=== PATIENT | female | born 1975 | race Caucasian/White ===

== ENCOUNTER → 2017-07-29 | Outpatient (CLI) | payer MEDICAID ==
[~2017-07-29] MED LIST: IOHEXOL 350 MG/ML 100 ML (OMNIPAQUE 350) VIAL IV ONE; NS 250 ML (IVPB) BAG IV ONE
--- NOTE | 2017-07-29 16:45 | Diagnostic Imaging Report ---
EXAM: CT IAC (ROOM SERVICE FOOD SERVER AUDIT CANAL) WO. INDICATION: MASS RT EAR, DELUSION OF PARASITOSIS. COMPARISON: None. FINDINGS: There is a soft tissue/fluid attenuating mass in the anterior wall of the right external ear canal near the tympanic membrane. This measures approximately 4 x 7 x 5 mm. There is concave osseous remodeling into the external ear canal suggesting this is originating external to the canal and/or communicating with the right temporomandibular joint. There are mild degenerative changes in both temporomandibular joints which are normally aligned. The external auditory canals are otherwise clear. The tympanic membranes appear intact. Normal morphology of the auditory ossicles bilaterally. No middle ear cavity masses or fluid. Normal morphology of the semicircular canals, vestibules, cochleas, internal auditory canals, and vestibular aqueducts. The jugular bulbs are unremarkable. Normal course of the facial nerves. The mastoids are clear. Mild mucosal thickening in the partially visualized left maxillary sinus. IMPRESSION: Indeterminate soft tissue/fluid attenuating mass in the medial anterior right external auditory canal measures up to 7 mm. Osseous remodeling along the periphery of this mass suggests that it is originating from the temporomandibular joint and may represent a synovial cyst. A dedicated MRI of the temporomandibular joints could be performed for further characterization. Dictated by: Dictated on workstation # [id number]
== END ==
LOC: RAD 07:42
PROVIDERS: ATTEND Nurse Practitioner Community Health
DX: H93.8X1 Other specified disorders of right ear (principal); F22 Delusional disorders; F41.9 Anxiety disorder, unspecified
CPT/HCPCS: 70480

== ENCOUNTER → 2018-02-13 | Outpatient (CLI) | payer SELFPAY | LOC: CARD 09:07 | PROVIDERS: ATTEND Nurse Practitioner Community Health | DX: R01.1 Cardiac murmur, unspecified (principal); R06.02 Shortness of breath; I35.1 Nonrheumatic aortic (valve) insufficiency | CPT/HCPCS: 93306 ==

== ENCOUNTER → 2018-08-08 | Outpatient (CLI) | payer MEDICAID ==
--- NOTE | 2018-08-08 17:44 | Diagnostic Imaging Report ---
INDICATION: Routine screening. COMPARISON: No prior mammograms are available for comparison. This is a baseline study. EXAMINATION: 2D and 3D bilateral screening mammography was performed with CAD. The current study was also evaluated with a Computer Aided Detection (CAD) system. FINDINGS: Both breasts are heterogeneously dense, limiting the sensitivity of mammography. No mass or malignant appearing microcalcifications are seen. Intraparenchymal lymph nodes in the upper outer aspects of both breasts are noted. Axillae are unremarkable. IMPRESSION: No mammographic features suspicious for malignancy are identified. ACR BI-RADS Category 2: Benign findings. Result letter will be mailed to the patient. Note: At least 10% of breast cancer is not imaged by mammography. Dictated by: Dictated on workstation # [id number]
== END ==
LOC: RAD 08:04
PROVIDERS: ATTEND Nurse Practitioner Primary Care
DX: Z12.31 Encounter for screening mammogram for malignant neoplasm of breast (principal)
CPT/HCPCS: 77067

== ENCOUNTER → 2019-02-04 | Outpatient (CLI) | payer MEDICAID ==
--- NOTE | 2019-02-04 15:28 | Diagnostic Imaging Report ---
PROCEDURE: US NON-OB transvaginal. TECHNIQUE: Multiple Real-time grayscale images were obtained of the pelvis in various projections endovaginally. INDICATION: Menorrhagia. FINDINGS: The uterus measures 10.8 x 5.8 x 5.2 cm. The endometrium is 5 mm in thickness. There is a posterior uterine mass measuring approximately 2.7 x 1.6 x 3.4 cm, suggestive of a fibroid. The right ovary measures 3.5 x 1.8 x 2.1 cm and the left ovary measures 3.5 x 2.9 x 2.0 cm. No adnexal mass or free fluid is seen. IMPRESSION: Probable uterine fibroid. The study is otherwise unremarkable. Dictated by: Dictated on workstation # [id number]
== END ==
LOC: RAD 10:07
PROVIDERS: ATTEND Obstetrics & Gynecology
DX: N92.0 Excessive and frequent menstruation with regular cycle (principal); N94.5 Secondary dysmenorrhea
CPT/HCPCS: 76830

== ENCOUNTER 2019-02-17 09:00 | Outpatient (CLI) | payer MEDICAID ==
[~2019-02-17] VITALS: Ht 157.5 cm; Wt 88.6 kg
[2019-02-17] MEDS ORDERED: PARO40TA3 PO (09:57)
== END 2019-02-17 10:04 ==
LOC: PREOP 09:00
PROVIDERS: ATTEND Obstetrics & Gynecology
DX: Z01.818 Encounter for other preprocedural examination (principal)

== ENCOUNTER 2019-06-02 12:51 | Outpatient (CLI) | payer MEDICAID ==
[~2019-06-02] VITALS: Ht 157 cm; Wt 85.0 kg
[~2019-06-02 12:51] MED LIST changes: +ACET-93 PO; +FERR325T18 PO; +IBUP-844 PO; -IOHEXOL 350 MG/ML 100 ML (OMNIPAQUE 350) VIAL IV ONE; -NS 250 ML (IVPB) BAG IV ONE; +OXC5T PO; +PARO40TA3 PO; +SENN-20 PO
[2019-06-02] MEDS ORDERED: VNL37.5T PO (12:57)
[2019-06-03] MEDS ORDERED: HYDR15SO6 PO (11:00)
== END 2019-06-02 13:17 | disposition home or self-care (01) ==
LOC: PREOP 12:51
PROVIDERS: ATTEND Surgery
DX: Z01.818 Encounter for other preprocedural examination (principal)

== ENCOUNTER 2019-06-16 15:25 | Observation (INO) | payer MEDICAID ==
[2019-06-16] VITALS (9 sets, daily range): BP systolic 104–157; BP diastolic 56–77
[~2019-06-16] VITALS: Ht 165.1 cm; Wt 68.9 kg
[~2019-06-16 15:25] MED LIST changes: +HYDR15SO6 PO; +VNL37.5T PO
[2019-06-16] MEDS ORDERED: NS IV 1000 ML 1,000 ML IV SCH ×2 (15:45→17:15)
[2019-06-16] MEDS ORDERED: LORazepam INJ 2 MG/ML (ATIVAN) VIAL IVP PRN (15:45)
--- NOTE | 2019-06-16 15:50 | ED Dyspnea ---
General Stated Complaint: SOA Source of Information: Patient Exam Limitations: No Limitations History of Present Illness Date Seen by Provider: Jun 16, 2019 Time Seen by Provider: 15:46 Initial Comments to ER with sudden onset shortness of breath about one hour ago. She was showering and decided to clean the shower while she was in it, she mixed pilot station away and mildew remover and inhaled the fumes and since then has been feeling as if her heart is beating fast and short of breath. She states she is not sure if she just made herself panic.she is currently undergoing chemotherapy for cervical cancer most recent dose on Saturday of last week Timing/Duration: 1 Week Severity: Moderate Associated Symptoms: Anxiety Allergies and Home Medications Allergies Coded Allergies: aspirin (Verified Allergy, Severe, VOMITTING,FEVER,SWELLING, 06/02/19) Home Medications Hydrocodone Bit/Acetaminophen 15 Ml Solution, 15 ML PO Q4H Prescribed by: PORFIRIO PEMBERTON on 06/03/19 1100 Ibuprofen 600 Mg Tablet, 600 MG PO Q6HR Prescribed by: YFN QUEZADA on 03/10/19 1324 Paroxetine HCl 40 Mg Tablet, 40 MG PO DAILY, (Reported) Venlafaxine HCl 37.5 Mg Tab, 37.5 MG PO DAILY, (Reported) Patient Home Medication List Home Medication List Reviewed: Yes Review of Systems Review of Systems Constitutional: see HPI EENTM: see HPI Respiratory: cough Cardiovascular: no symptoms reported Genitourinary: no symptoms reported Musculoskeletal: see HPI Skin: no symptoms reported Psychiatric/Neurological: See HPI, Anxiety Past [id number]-Klvryu Hx Patient Social History Type Used: Cigarettes 2nd Hand Smoke Exposure: Yes Recent Hopitalizations: No Seasonal Allergies Seasonal Allergies: Yes Past Medical History Surgeries: Yes (C/S X2) Respiratory: Yes (ONSET OF COPD) Cardiac: No Neurological: No Sexually Transmitted Disease: No HIV/AIDS: No Genitourinary: No Gastrointestinal: No Musculoskeletal: Yes Chronic Back Pain Endocrine: No HEENT: No (GLASSES/CONTACTS) Loss of Vision: Denies Hearing Impairment: Denies Cancer: Yes Cervical Did You Recieve Any Treatments: Yes What Type of Treatment Did You: Chemotherapy, Surgical Intervention Psychosocial: Yes Anxiety, Depression Integumentary: No Blood Disorders: Yes (ANEMIA) Adverse Reaction/Blood Tranf: No (HAS HAD BLOOD WITH NO REACTION) Family Medical History Cardiovascular disease 19 FATHER Diabetes mellitus 19 FATHER Hypertension 19 FATHER Myocardial infarction 19 FATHER Physical Exam Vital Signs Vital Signs - First Documented 06/16/19 15:25 Temp 36.8 Pulse 137 Resp 22 B/P (MAP) 164/86 (112) Pulse Ox 99 O2 Delivery Room Air Capillary Refill : Height, Weight, BMI Height: '" Weight: lbs. oz. kg; 34.48 BMI Method: General Appearance: WD/WN, Anxious, Obese HEENT: PERRL/EOMI, Normal ENT Inspection Respiratory: Normal Breath Sounds, No Accessory Muscle Use, No Respiratory Distress, Other (tachypneic) Cardiovascular: Tachycardia (130s) Gastrointestinal: Non Tender, Soft Extremity: Normal Capillary Refill Neurologic/Psychiatric: Alert, Oriented x3 Skin: Normal Color, Warm/Dry Progress/Results/Core Measures Results/Orders Lab Results Laboratory Tests Test 06/16/19 15:53 Range/Units White Blood Count 22.0 H 4.3-11.0 10^3/uL Red Blood Count 4.10 L 4.35-5.85 10^6/uL Hemoglobin 12.7 11.5-16.0 G/DL Hematocrit 39 35-52 % Mean Corpuscular Volume 94 80-99 FL Mean Corpuscular Hemoglobin 31 25-34 PG Mean Corpuscular Hemoglobin Concent 33 32-36 G/DL Red Cell Distribution Width 15.5 H 10.0-14.5 % Platelet Count 233 130-400 10^3/uL Mean Platelet Volume 10.6 H 7.4-10.4 FL Neutrophils (%) (Auto) 92 H 42-75 % Lymphocytes (%) (Auto) 2 L 12-44 % Monocytes (%) (Auto) 6 0-12 % Eosinophils (%) (Auto) 0 0-10 % Basophils (%) (Auto) 0 0-10 % Neutrophils # (Auto) 20.3 H 1.8-7.8 X 10^3 Lymphocytes # (Auto) 0.4 L 1.0-4.0 X 10^3 Monocytes # (Auto) 1.3 H 0.0-1.0 X 10^3 Eosinophils # (Auto) 0.0 0.0-0.3 10^3/uL Basophils # (Auto) 0.0 0.0-0.1 10^3/uL Neutrophils % (Manual) 95 % Lymphocytes % (Manual) 1 % Monocytes % (Manual) 4 % Hypochromasia MODERATE Anisocytosis SLIGHT D-Dimer < 0.27 0.00-0.49 UG/ML Sodium Level 139 135-145 MMOL/L Potassium Level 2.8 L 3.6-5.0 MMOL/L Chloride Level 109 H 98-107 MMOL/L Carbon Dioxide Level 12 L 21-32 MMOL/L Anion Gap 18 H 5-14 MMOL/L Blood Urea Nitrogen 8 7-18 MG/DL Creatinine 0.81 0.60-1.30 MG/DL Estimat Glomerular Filtration Rate > 60 BUN/Creatinine Ratio 10 Glucose Level 312 H 70-105 MG/DL Calcium Level 9.0 8.5-10.1 MG/DL Corrected Calcium 8.8 8.5-10.1 MG/DL Magnesium Level 2.0 1.6-2.4 MG/DL Total Bilirubin 0.2 0.1-1.0 MG/DL Aspartate Amino Transf (AST/SGOT) 26 5-34 U/L Alanine Aminotransferase (ALT/SGPT) 48 0-55 U/L Alkaline Phosphatase 104 40-136 U/L Troponin I < 0.028 <0.028 NG/ML C-Reactive Protein High Sensitivity 0.15 0.00-0.50 MG/DL B-Type Natriuretic Peptide 61.5 <100.0 PG/ML Total Protein 6.9 6.4-8.2 GM/DL Albumin 4.2 3.2-4.5 GM/DL Procalcitonin 0.02 <0.10 NG/ML My Orders Orders - TOM FABIAN AUTO PAINTER Cbc With Automated Diff (06/16/19 15:42) Comprehensive Metabolic Panel (06/16/19 15:42) BNP (06/16/19 15:42) Troponin I (06/16/19 15:42) Ekg Tracing (06/16/19 15:42) Fibrin Degradation Products (06/16/19 15:42) Chest 1 View, Ap/Pa Only (06/16/19 15:42) Ed Iv/Invasive Line Start (06/16/19 15:42) Lorazepam Injection (Ativan Injection) (06/16/19 15:45) Ns Iv 1000 Ml (Sodium Chloride 0.9%) (06/16/19 15:45) Manual Differential (06/16/19 15:53) Potassium Cl 10meq/50ml Ivpb (Kcl 10 Meq (06/16/19 16:45) Potassium Chloride (Tablet) (Klor Con Ta (06/16/19 16:45) Ns Iv 1000 Ml (Sodium Chloride 0.9%) (06/16/19 17:15) Hs C Reactive Protein (06/16/19 17:24) Procalcitonin (Pct) (06/16/19 17:24) Magnesium (06/16/19 17:27) Medications Given in ED Current Medications Medications Dose Ordered Sig/Dunia Route Start Time Stop Time Status Last Admin Dose Admin Lorazepam 0.5 mg ONCE PRN IVP 06/16/19 15:45 06/16/19 16:00 0.5 MG Potassium Chloride 50 meq ONCE ONCE PO 06/16/19 16:45 06/16/19 16:46 DC 06/16/19 16:42 50 MEQ Potassium Chloride 50 ml @ 50 mls/hr ONCE ONCE IV 06/16/19 16:45 06/16/19 17:44 DC 06/16/19 16:42 50 MLS/HR Vital Signs/I&O 06/16/19 15:25 Temp 36.8 Pulse 137 Resp 22 B/P (MAP) 164/86 (112) Pulse Ox 99 O2 Delivery Room Air Diagnostic Imaging Diagonstic Imaging: Xray Comments NAME: RAMIREZ CROWTIM Beckham [facility] REC#: [id number] PT STATUS: REG ER : 1975 PHYSICIAN: TOM FABIAN AUTO PAINTER ADMIT DATE: 06/16/19/ER Signed Date of Exam:06/16/19 CHEST 1 VIEW, AP/PA ONLY EXAMINATION: Chest radiograph, portable AP view. DATE: 06/16/2019 4:39 PM hours. INDICATION: 43-year-old female, chest pain. Shortness of breath. COMPARISON: June 03, 2019. FINDINGS: There is a left-sided port catheter with tip overlying the upper SVC. Stable overall appearance of the cardiomediastinal silhouette. There is no identified pneumothorax. There is no large pleural effusion. There is no identified focal airspace consolidation. IMPRESSION: 1. No identified acute cardiopulmonary abnormality. Dictated by: Dictated on workstation # [id number] Dict: 06/16/19 1640 Trans: 06/16/19 1646 [facility] [id number] Interpreted by: KENDELL NESS MD Electronically signed by: KENDELL NESS MD 06/16/196 Departure Communication (Admissions) Time/Spoke to Admitting Phy: 17:[address] Hanson, we will go ahead and admit, observation status replace electrolytes 1651-discussed with Dr. Rowell, the leukocytosis/demargination is likely secondary to whatever she was exposed to. She did receive chemotherapy yesterday but did not receive any Neupogen. She has no fevers. After the 0.5 mg of lorazepam she is feeling better. I'll replace the potassium both orally and with IV. If she is otherwise medically stable he advised that she can go home. her heart rate is reduced but still tachycardic at about 130 sinus and her oxygen saturation remains greater than 98% on room air.chest x-ray is clear.I will go ahead and test her for COVID-19 given that she is a cancer patient with shortness of breath(though she states the shortness of breath is chronic).given the new tachycardia leukocytosis and hypokalemia I will admit observation status. COVID-19 swabs have been done. Impression Primary Impression: Dyspnea Additional Impressions: Hypokalemia Leukocytosis Disposition: ADMITTED INPATIENT Condition: Stable Admissions Decision to Admit Reason: Admit from ER (General) Decision to Admit/Date: Jun 16, 2019 Time/Decision to Admit Time: 17:20 Departure-Patient Inst. Referrals: [facility] [place]) Primary Care Physician OLIVIA JOYCE (Family) Primary Care Physician TOM FABIAN APRN Jun 16, 2019 15:50
[2019-06-16 15:59] LABS: BASOPHILS % (AUTO) 0 % (0-10); EOSINOPHILS % (AUTO) 0 % (0-10); HEMATOCRIT 39 % (35-52); HEMOGLOBIN 12.7 G/DL (11.5-16.0); LYMPHOCYTES # (AUTO) 0.4 X 10^3 (1.0-4.0); LYMPHOCYTES % (AUTO) 2 % (12-44); MEAN CORPUSCULAR HEMOGLOBIN 31 PG (25-34); MEAN CORPUSCULAR HGB CONC 33 G/DL (32-36); MEAN CORPUSCULAR VOLUME 94 FL (80-99); MEAN PLATELET VOLUME 10.6 FL (7.4-10.4); MONOCYTES # (AUTO) 1.3 X 10^3 (0.0-1.0); MONOCYTES % (AUTO) 6 % (0-12); NEUTROPHILS # (AUTO) 20.3 X 10^3 (1.8-7.8); NEUTROPHILS % (AUTO) 92 % (42-75); PLATELET COUNT 233 10^3/uL (130-400); RED CELL DISTRIBUTION WIDTH 15.5 % (10.0-14.5)
[2019-06-16 16:26] LABS: ALANINE AMINOTRANSFERASE 48 U/L (0-55); ALBUMIN 4.2 GM/DL (3.2-4.5); ALKALINE PHOSPHATASE 104 U/L (40-136); BILIRUBIN,TOTAL 0.2 MG/DL (0.1-1.0); BUN/CREATININE RATIO 10; CARBON DIOXIDE 12 MMOL/L (21-32); CHLORIDE 109 MMOL/L (98-107); CREATININE SERUM 0.81 MG/DL (0.60-1.30); GFR ESTIMATED > 60; GLUCOSE 312 MG/DL (70-105); POTASSIUM 2.8 MMOL/L (3.6-5.0); SODIUM 139 MMOL/L (135-145); TOTAL PROTEIN 6.9 GM/DL (6.4-8.2)
[2019-06-16 16:40] LABS: ANISOCYTOSIS SLIGHT; HYPOCHROMASIA MODERATE; LYMPHOCYTES % (MANUAL) 1 %; MONOCYTES % (MANUAL) 4 %; NEUTROPHILS % (MANUAL) 95 %
--- NOTE | 2019-06-16 16:43 | Diagnostic Imaging Report ---
EXAMINATION: Chest radiograph, portable AP view. DATE: 06/16/2019 4:39 PM hours. INDICATION: 43-year-old female, chest pain. Shortness of breath. COMPARISON: June 03, 2019. FINDINGS: There is a left-sided port catheter with tip overlying the upper SVC. Stable overall appearance of the cardiomediastinal silhouette. There is no identified pneumothorax. There is no large pleural effusion. There is no identified focal airspace consolidation. IMPRESSION: 1. No identified acute cardiopulmonary abnormality. Dictated by: Dictated on workstation # [id number]
[2019-06-16] MEDS ORDERED: POTASSIUM CL 10MEQ/50ML IVPB 50 ML IV ONE (16:45)
[2019-06-16] MEDS ORDERED: KCL 10 MEQ TAB (MICRO K) PO ONE (16:45)
--- NOTE | 2019-06-16 17:35 | NUR ---
NOTED PT HAVING DRY COUGH
--- OUTSIDE RECORDS SUMMARY | 2019-06-16 18:12 | XMS REPORT | Continuity of Care Document ---
Author Organization Unknown Address Unknown Phone Unavailable Allergies Active Description Code Type Severity Reaction Onset Reported/Identified Relationship to Patient Clinical Status Yes No Allergy Information Available [id number] Drug Allergy Unknown N/A 018 Yes aspirin [id number] Drug Allergy Unknown N/A 02/17/2019 Yes aspirin [id number] Drug Allergy Severe VOMITTING,FEVER 06/02/2019 Medications There is no data. 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 DELUSIONAL DISORDERS 07/30/2017 OLIVIA JOYCE Ot F41.9 ANXIETY DISORDER, UNSPECIFIED 07/30/2017 OLIVIA JOYCE Ot H93.8X1 OTHER SPECIFIED DISORDERS OF RIGHT EAR 08/15/2017 OLIVIA JOYCE Ot F2 2 DELUSIONAL DISORDERS 08/15/2017 OLIVIA JOYCE Ot F41.9 ANXIETY DISORDER, UNSPECIFIED 08/15/2017 OLIVIA JOYCE Ot H93.8X1 OTHER SPECIFIED DISORDERS OF RIGHT EAR 01/07/2018 OLIVIA JOYCE Ot F2 2 DELUSIONAL DISORDERS 01/07/2018 OLIVIA JOYCE Ot F41.9 ANXIETY DISORDER, UNSPECIFIED 01/07/2018 OLIVIA JOYCE Ot H93.8X1 OTHER SPECIFIED DISORDERS OF RIGHT EAR 01/07/2018 OLIVIA JOYCE Ot F2 2 DELUSIONAL DISORDERS 01/07/2018 OLIVIA JOYCE Ot F41.9 ANXIETY DISORDER, UNSPECIFIED 01/07/2018 OLIVIA JOYCE RU[employer] SOFTWARE DEVELOPER Ot H93.8X1 OTHER SPECIFIED DISORDERS OF RIGHT EAR 01/07/2018 ISIAH OLIVIA Keegan [employer] SOFTWARE DEVELOPER Ot F2 2 DELUSIONAL DISORDERS 01/07/2018 ISIAH OLIVIA Keegan [employer] SOFTWARE DEVELOPER Ot F41.9 ANXIETY DISORDER, UNSPECIFIED 01/07/2018 ISIAHOLIVIA RUBY ON [employer] SOFTWARE DEVELOPER Ot H93.8X1 OTHER SPECIFIED DISORDERS OF RIGHT EAR 02/12/2018 OLIVIA JOYCEP Ot F2 2 DELUSIONAL DISORDERS 02/12/2018 ISIAH OLIVIA Keegan [employer] SOFTWARE DEVELOPER Ot F41.9 ANXIETY DISORDER, UNSPECIFIED 02/12/2018 ISIAH OLIVIA Keegan [employer] SOFTWARE DEVELOPER Ot H93.8X1 OTHER SPECIFIED DISORDERS OF RIGHT EAR 02/12/2018 ISIAH OLIVIA Keegan MAINP Ot F2 2 DELUSIONAL DISORDERS 02/12/2018 ISIAH OLIVIA Keegan [employer] SOFTWARE DEVELOPER Ot F41.9 ANXIETY DISORDER, UNSPECIFIED 02/12/2018 ISIAH OLIVIA Keegan MAINP Ot H93.8X1 OTHER SPECIFIED DISORDERS OF RIGHT EAR 02/17/2018 ISIAH OLIVIA Keegan [employer] SOFTWARE DEVELOPER Ot I35.1 NONRHEUMATIC AORTIC (VALVE) INSUFFICIENC 02/17/2018 ISIAH OLIVIA Keegan [employer] SOFTWARE DEVELOPER Ot R01.1 CARDIAC MURMUR, UNSPECIFIED 02/17/2018 ISIAH OLIVIA Keegan [employer] SOFTWARE DEVELOPER Ot R06.02 SHORTNESS OF BREATH 03/07/2018 ISIAH OLIVIA Keegan [employer] SOFTWARE DEVELOPER Ot I35.1 NONRHEUMATIC AORTIC (VALVE) INSUFFICIENC 03/07/2018 ISIAH OLIVIA Keegan [employer] SOFTWARE DEVELOPER Ot R01.1 CARDIAC MURMUR, UNSPECIFIED 03/07/2018 ISIAH OLIVIA Keegan [employer] SOFTWARE DEVELOPER Ot R06.02 SHORTNESS OF BREATH 03/24/2018 ISIAH OLIVIA Keegan [employer] SOFTWARE DEVELOPER Ot I35.1 NONRHEUMATIC AORTIC (VALVE) INSUFFICIENC 03/24/2018 ISIAH OLIVIA Keegan [employer] SOFTWARE DEVELOPER Ot R01.1 CARDIAC MURMUR, UNSPECIFIED 03/24/2018 ISIAH OLIVIA Keegan [employer] SOFTWARE DEVELOPER Ot R06.02 SHORTNESS OF BREATH 07/28/2018 OLIVIA JOYCE [employer] SOFTWARE DEVELOPER Ot 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 DELUSIONAL DISORDERS 07/28/2018 ISIAH OLIVIA Keegan [employer] SOFTWARE DEVELOPER Ot F41.9 ANXIETY DISORDER, UNSPECIFIED 07/28/2018 ISIAH OLIVIA Keegan [employer] SOFTWARE DEVELOPER Ot H93.8X1 OTHER SPECIFIED DISORDERS OF RIGHT EAR 07/28/2018 ISIAH OLIVIA Keegan [employer] SOFTWARE DEVELOPER Ot I35.1 NONRHEUMATIC AORTIC (VALVE) INSUFFICIENC 07/28/2018 ISIAH OLIVIA Keegan MAINP Ot R01.1 CARDIAC MURMUR, UNSPECIFIED 07/28/2018 ISIAH OLIVIA Keegan WALKER Ot R06.02 SHORTNESS OF BREATH 07/29/2018 OLIVIA JOYCEP Ot F2 2 DELUSIONAL DISORDERS 07/29/2018 OLIVIA JOYCEP Ot F41.9 ANXIETY DISORDER, UNSPECIFIED 07/29/2018 OLIVIA JOYCEP Ot H93.8X1 OTHER SPECIFIED DISORDERS OF RIGHT EAR 07/29/2018 OLIVIA JOYCEP Ot I35.1 NONRHEUMATIC AORTIC (VALVE) INSUFFICIENC 07/29/2018 ISIAH OLIVIA Keegan MAINP Ot R01.1 CARDIAC MURMUR, UNSPECIFIED 07/29/2018 OLIVIA JOYCEP Ot R06.02 SHORTNESS OF BREATH 08/12/2018 POP MCHUGH APRN Ot Z12.31 ENCNTR SCREEN MAMMOGRAM FOR MALIGNANT NE 08/25/2018 OPP MCHUGH APRN Ot Z12.31 ENCNTR SCREEN MAMMOGRAM FOR MALIGNANT NE 02/06/2019 DAMIEN SHOEMAKER YFN C Ot N92.0 EXCESSIVE AND FREQUENT MENSTRUATION WITH 02/06/2019 DAMIEN SHOEMAKER YFN C Ot N94.5 SECONDARY DYSMENORRHEA 02/17/2019 ANTHONY QUEZADA DOA C Ot Z01.8 18 ENCOUNTER FOR OTHER PREPROCEDURAL EXAMIN 03/10/2019 ANTHONY QUEZADA DOA C Ot 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5 SECONDARY DYSMENORRHEA 03/10/2019 QUEZADA DO, YFN C Ot Z79.8 99 OTHER SHELL ASSEMBLER (CURRENT) DRUG THERAPY 03/10/2019 QUEZADA DO, YFN C Ot Z82.3 FAMILY HISTORY OF STROKE 03/10/2019 QUEZADA DO, YFN C Ot Z82.4 9 FAMILY HX OF ISCHEM HEART DIS AND OTH DI 03/10/2019 QUEZADA DO, YFN C Ot Z83.3 FAMILY HISTORY OF DIABETES MELLITUS 03/10/2019 QUEZADA DO, YFN C Ot Z88.6 ALLERGY STATUS TO ANALGESIC AGENT STATUS 03/16/2019 QUEZADA DO, YFN C Ot 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, UNSPECIFIED 03/16/2019 QUEZADA DO, YFN C Ot D25.9 LEIOMYOMA OF UTERUS, UNSPECIFIED 03/16/2019 QUEZADA DO, YFN C Ot D64.9 ANEMIA, UNSPECIFIED 03/16/2019 QUEZADA DO, YFN C Ot F17.2 10 NICOTINE DEPENDENCE, CIGARETTES, UNCOMPL 03/16/2019 QUEZADA DO, YFN C Ot F41.9 ANXIETY DISORDER, UNSPECIFIED 03/16/2019 QUEZADA DO, YFN C Ot J44.9 CHRONIC OBSTRUCTIVE PULMONARY DISEASE, U 03/16/2019 QUEZADA DO, YFN C Ot K21.9 GASTRO-ESOPHAGEAL REFLUX DISEASE WITHOUT 03/16/2019 QUEZADA DO, YFN C Ot N92.0 EXCESSIVE AND FREQUENT MENSTRUATION WITH 03/16/2019 QUEZADA DO, YFN C Ot N94.5 SECONDARY DYSMENORRHEA 03/16/2019 QUEZADA DO, YFN C Ot Z79.8 99 OTHER MCC (CURRENT) DRUG THERAPY 03/16/2019 QUEZADA DO, YFN C Ot Z82.3 FAMILY HISTORY OF STROKE 03/16/2019 QUEZADA DO, YFN C Ot Z82.4 9 FAMILY HX OF ISCHEM HEART DIS AND OTH DI 03/16/2019 QUEZADA DO, YFN C Ot Z83.3 FAMILY HISTORY OF DIABETES MELLITUS 03/16/2019 QUEZADA DO, YFN C Ot Z88.6 ALLERGY STATUS TO ANALGESIC AGENT STATUS 03/18/2019 QUEZADA DO, YFN C Ot 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, UNSPECIFIED 03/18/2019 QUEZADA DO, YFN C Ot D25.9 LEIOMYOMA OF UTERUS, UNSPECIFIED 03/18/2019 QUEZADA DO YFN C Ot D64.9 ANEMIA, UNSPECIFIED 03/18/2019 QUEZADA DOANTHONYA C Ot F17.2 10 NICOTINE DEPENDENCE, CIGARETTES, UNCOMPL 03/18/2019 QUEZADA DO YFN C Ot F41.9 ANXIETY DISORDER, UNSPECIFIED 03/18/2019 QUEZADA DO YFN C Ot J44.9 CHRONIC OBSTRUCTIVE PULMONARY DISEASE, U 03/18/2019 QUEZADA DOANTHONYA C Ot K21.9 GASTRO-ESOPHAGEAL REFLUX DISEASE WITHOUT 03/18/2019 QUEZADA DO YFN C Ot N92.0 EXCESSIVE AND FREQUENT MENSTRUATION WITH 03/18/2019 QUEZADA DOANTHONYA C Ot N94.5 SECONDARY DYSMENORRHEA 03/18/2019 QUEZADA DO YFN C Ot Z79.8 99 OTHER SHELL ASSEMBLER (CURRENT) DRUG THERAPY 03/18/2019 QUEZADA DO YFN C Ot Z82.3 FAMILY HISTORY OF STROKE 03/18/2019 QUZEADA DOANTHONYA C Ot Z82.4 9 FAMILY HX OF ISCHEM HEART DIS AND OTH DI 03/18/2019 QUEZADA DOANTHONYA C Ot Z83.3 FAMILY HISTORY OF DIABETES MELLITUS 03/18/2019 QUEZADA DOANTHONYA C Ot Z88.6 ALLERGY STATUS TO ANALGESIC AGENT STATUS 05/11/2019 QUEZADA DO YFN C Ot N92.0 EXCESSIVE AND FREQUENT MENSTRUATION WITH 05/11/2019 QUEZADA DO YFN C Ot N94.5 SECONDARY DYSMENORRHEA 05/12/2019 QUEZADA DO YFN C Ot N92.0 EXCESSIVE AND FREQUENT MENSTRUATION WITH 05/12/2019 QUEZADA DO YFN C Ot N94.5 SECONDARY DYSMENORRHEA 05/12/2019 QUEZADA DO, YFN C Ot N92.0 EXCESSIVE AND FREQUENT MENSTRUATION WITH 05/12/2019 QUEZADA DO YFN C Ot N94.5 SECONDARY DYSMENORRHEA 05/27/2019 SANJAY MERCEDES Ot 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, UNSP 05/27/2019 SANJAY MERCEDES Ot D50.0 IRON DEFICIENCY ANEMIA SECONDARY TO BLOO 05/27/2019 SANJAY MERCEDES Ot J44.9 CHRONIC OBSTRUCTIVE PULMONARY DISEASE, U 05/27/2019 DAREN, SANJAY Mares Ot L65.9 NONSCARRING HAIR LOSS, UNSPECIFIED 05/27/2019 DARENSANJAY Ot 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, UNSP 05/27/2019 DAREN, SANJAY Mares Ot D50.0 IRON DEFICIENCY ANEMIA SECONDARY TO BLOO 05/27/2019 DAREN, SANJAY Mares Ot J44.9 CHRONIC OBSTRUCTIVE PULMONARY DISEASE, U 05/27/2019 DARENSANJAY Ot L65.9 NONSCARRING HAIR LOSS, UNSPECIFIED 05/28/2019 DARENSANJAY Ot 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, UNSP 05/28/2019 DARENSANJAY LAU Ot D50.0 IRON DEFICIENCY ANEMIA SECONDARY TO BLOO 05/28/2019 DAREN, SANJAY Marse Ot J44.9 CHRONIC OBSTRUCTIVE PULMONARY DISEASE, U 05/28/2019 SANJAY MERCEDES Ot L65.9 NONSCARRING HAIR LOSS, UNSPECIFIED 06/02/2019 SANJAY MERCEDES Ot 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, UNSP 06/02/2019 DARENSANJAY LAU Ot D50.0 IRON DEFICIENCY ANEMIA SECONDARY TO BLOO 06/02/2019 DAREN, SANJAY Mares Ot J44.9 CHRONIC OBSTRUCTIVE PULMONARY DISEASE, U 06/02/2019 SANJAY MERCEDES Ot L65.9 NONSCARRING HAIR LOSS, UNSPECIFIED 06/02/2019 PORFIRIO PEMBERTON MD, Ot Z01.81 8 ENCOUNTER FOR OTHER PREPROCEDURAL EXAMIN 06/04/2019 SANJAY MERCEDES Ot 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, UNSP 06/04/2019 SANJAY MERCEDES Ot D50.0 IRON DEFICIENCY ANEMIA SECONDARY TO BLOO 06/04/2019 SANJAY MERCEDES Ot J44.9 CHRONIC OBSTRUCTIVE PULMONARY DISEASE, U 06/04/2019 SANJAY MERCEDES Ot L65.9 NONSCARRING HAIR LOSS, UNSPECIFIED 06/08/2019 PORFIRIO PEMBERTON MD, Ot 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, UNSP 06/08/2019 PORFIRIO PEMBERTON MD, Ot E66.9 OBESITY, UNSPECIFIED 06/08/2019 PORFIRIO PEMBERTON MD, Ot F17.21 0 NICOTINE DEPENDENCE, CIGARETTES, UNCOMPL 06/08/2019 PORFIRIO PEMBERTON MD, Ot F32.9 MAJOR DEPRESSIVE DISORDER, SINGLE EPISOD 06/08/2019 PORFIRIO PEMBERTON MD, Ot F41.9 ANXIETY DISORDER, UNSPECIFIED 06/08/2019 PORFIRIO PEMBERTON MD, Ot J44.9 CHRONIC OBSTRUCTIVE PULMONARY DISEASE, U 06/08/2019 PORFIRIO PEMBERTON MD, Ot Z11.2 ENCOUNTER FOR SCREENING FOR OTHER BACTER 06/08/2019 PORFIRIO PEMBERTON MD, Ot Z68.35 BODY MASS INDEX (BMI) 35.0-35.9, ADULT 06/08/2019 PORFIRIO PEMBERTON MD, Ot Z79.89 9 OTHER MCC (CURRENT) DRUG THERAPY 06/08/2019 PORFIRIO PEMBERTON MD, Ot Z80.41 FAMILY HISTORY OF MALIGNANT NEOPLASM OF 06/08/2019 PORFIRIO PEMBERTON MD, Ot Z80.49 FAMILY HISTORY OF MALIGNANT NEOPLASM OF Procedures There is no data. Results Test Result Range CMP - 10/21/17 08:40 GLUCOSE 80 mg/dL 65-99 UREA NITROGEN (BUN) 9 mg/dL 7-25 CREATININE 0.49 mg/dL 0.50-1.10 eGFR NON-AFR. ANGUILLAN 118 mL/min/1.73m2 > OR = 60 eGFR 137 mL/min/1.73m2 > OR = 60 BUN/CREATININE RATIO 18 (calc) 6-22 SODIUM 136 mmol/L 135-146 POTASSIUM 4.6 mmol/L 3.5-5.3 CHLORIDE 106 mmol/L 98-110 CARBON DIOXIDE 24 mmol/L 20-32 CALCIUM 9.7 mg/dL 8.6-10.2 PROTEIN, TOTAL 7.3 g/dL 6.1-8.1 ALBUMIN 4.1 g/dL 3.6-5.1 GLOBULIN 3.2 g/dL (calc) 1.9-3.7 ALBUMIN/GLOBULIN RATIO 1.3 (calc) 1.0-2. 5 BILIRUBIN, TOTAL 0.4 mg/dL 0.2-1.2 ALKALINE PHOSPHATASE 105 U/L 33-115 AST 30 U/L 10-30 ALT 31 U/L 6-29 VITAMIN D, 25-H - 01/02/18 11:34 VITAMIN D,25-OH,TOTAL,IA 13 ng/mL 30-10 0 CBC - 04/14/18 18:02 WHITE BLOOD CELL COUNT 10.0 Thousand/uL 3.8-10.8 RED BLOOD CELL COUNT 4.83 Million/uL 3.8 0-5.10 HEMOGLOBIN 9.4 g/dL 11.7-15.5 HEMATOCRIT 32.8 % 35.0-45.0 MCV 67.9 fL 80.0-100.0 MCH 19.5 pg 27.0-33.0 MCHC 28.7 g/dL 32.0-36.0 RDW 18.3 % 11.0-15.0 PLATELET COUNT 311 Thousand/uL 140-400 MPV 11.0 fL 7.5-12.5 ABSOLUTE NEUTROPHILS 6270 cells/uL 1500- 7800 ABSOLUTE LYMPHOCYTES 2490 cells/uL 850-3 900 ABSOLUTE MONOCYTES 1000 cells/uL 200-950 ABSOLUTE EOSINOPHILS 140 cells/uL 15-500 ABSOLUTE BASOPHILS 100 cells/uL 0-200 NEUTROPHILS 62.7 % NRG LYMPHOCYTES 24.9 % NRG MONOCYTES 10.0 % NRG EOSINOPHILS 1.4 % NRG BASOPHILS 1.0 % NRG SYPHILIS (RPR W/ REFLEX CONFIRMATION) - 07/25/18 09:50 RPR (DX) W/REFL TITER AND CONFIRMATORY TESTING NON-REACTIVE NON-REACTIVE GC/CHLAMYDIA (SWAB OR URINE)-RAPID - 01/03 09:50 CHLAMYDIA TRACHOMATIS RNA, TMA NOT DETECTED NOT DETECTED NEISSERIA GONORRHOEAE RNA, TMA NOT DETECTED NOT DETECTED COMMENT NRG SUREPATH PAP AND HPV mRNA E6/E7 - 09:50 CLINICAL INFORMATION: NRG LMP: 07/11/18 NRG PREV. PAP: UNKNOWN NRG PREV. BX: NRG SOURCE: Cervix NRG STATEMENT OF ADEQUACY: NRG INTERPRETATION/RESULT: NRG SANITATION ASSOCIATE: NRG HPV mRNA E6/E7, SUREPATH VIAL Detected NOT DETECTED GENERAL CATEGORIZATION: NRG COMMENT: NRG PATHOLOGIST: NRG COMMENT NRG TISSUE, 2 SPECIMENS - 10/13/18 15:36 A SOURCE NRG A GROSS DESCRIPTION NRG A DIAGNOSIS NRG A COMMENT NRG Methicillin resistant Staphylococcus aur eus (MRSA) screening culture - 03/10/19 08:12 Methicillin resistant Staphylococcus aureus (MRSA) scr eening culture NEG NRG Complete blood count (CBC) with automate d white blood cell (WBC) differential - 03/10/19 09:05 Blood leukocytes automated count (number/volume) 7.2 10*3/uL 4.3-11.0 Blood erythrocytes automated count (number/volume) 4.19 10*6/uL 4.35-5.85 Venous blood hemoglobin measurement (mass/volume) 7.7 g/dL 11.5-16.0 Blood hematocrit (volume fraction) 27 % 35-52 Automated erythrocyte mean corpuscular volume 64 [ foz_us] 80-99 Automated erythrocyte mean corpuscular h emoglobin (mass per erythrocyte) 18 pg 25-34 Automated erythrocyte mean corpuscular h emoglobin concentration measurement (mass/volume) 29 g/dL 32-36 Automated erythrocyte distribution width ratio 19. 3 % 10.0- 14.5 Automated blood platelet count (count/volume) 104 10*3/uL 130-400 Automated blood platelet mean volume measurement T HAND BLOCKER 7.4- 10.4 Automated blood neutrophils/100 leukocytes 60 % 42-75 Automated blood lymphocytes/100 leukocytes 29 % 12-44 Blood monocytes/100 leukocytes 8 % 0-12 Automated blood eosinophils/100 leukocytes 2 % 0-10 Automated blood basophils/100 leukocytes 1 % 0-10 Blood neutrophils automated count (number/volume) 4.3 10*3 1.8-7.8 Blood lymphocytes automated count (number/volume) 2.1 10*3 1.0-4.0 Blood monocytes automated count (number/volume) 0. 6 10*3 0.0-1.0 Automated eosinophil count 0.2 10*3/uL 0 .0-0.3 Automated blood basophil count (count/volume) 0.1 10*3/uL 0.0-0.1 RED CELLS LEUKO REDUCED AS1 - 03/10/19 0 9:05 RED CELLS LEUKO REDUCED AS1 T RANSFUSED 03/10/19 1326 NR Blood type T Indirect antibody screen pa alem - 03/10/19 09:05 WRISTBAND NUMBER [id number] NRG ABO+Rh group AP NRG Blood group antibody screen NEGATIVE NR G Complete urinalysis with reflex to cultu re - 03/10/19 09:25 Urine color determination YELLOW NRG Urine clarity determination CLEAR NR G Urine pH measurement by test strip 6.0 5-9 Specific gravity of urine by test strip 1.015 1.016-1.022 Urine protein assay by test strip, semi-quantitative NEGATIVE NEGATIVE Urine glucose detection by automated test strip NE GATIVE NEGATIVE Erythrocytes detection in urine sediment by light micr oscopy NEGATIVE NEGATIVE Urine ketones detection by automated test strip NE GATIVE NEGATIVE Urine nitrite detection by test strip NEGATIVE NEGATIVE Urine total bilirubin detection by test strip NEGA TIVE NEGATIVE Urine urobilinogen measurement by automated test strip (mass/volume) 0.2 mg/dL < = 1.0 Urine leukocyte esterase detection by dipstick NEG ATIVE NEGATIVE Automated urine sediment erythrocyte cou nt by microscopy (number/high power field) NONE NRG Automated urine sediment leukocyte count by microscopy (number/high power field) NONE NRG Bacteria detection in urine sediment by light microsco py NEGATIVE NRG Squamous epithelial cells detection in u rine sediment by light microscopy 2-5 NRG Crystals detection in urine sediment by light microsco py NONE NRG Casts detection in urine sediment by light microscopy NONE NRG Mucus detection in urine sediment by light microscopy SMALL NRG Complete urinalysis with reflex to culture NO NRG Complete blood count (CBC) with automate d white blood cell (WBC) differential - 03/10/19 10:10 Blood leukocytes automated count (number/volume) 7.6 10*3/uL 4.3-11.0 Blood erythrocytes automated count (number/volume) 4.31 10*6/uL 4.35-5.85 Venous blood hemoglobin measurement (mass/volume) 7.8 g/dL 11.5-16.0 Blood hematocrit (volume fraction) 28 % 35-52 Automated erythrocyte mean corpuscular volume 65 [ foz_us] 80-99 Automated erythrocyte mean corpuscular h emoglobin (mass per erythrocyte) 18 pg 25-34 Automated erythrocyte mean corpuscular h emoglobin concentration measurement (mass/volume) 28 g/dL 32-36 Automated erythrocyte distribution width ratio 19. 7 % 10.0- 14.5 Automated blood platelet count (count/volume) 365 10*3/uL 130-400 Automated blood platelet mean volume measurement 9.7 [foz_us] 7.4-10.4 Automated blood neutrophils/100 leukocytes 57 % 42-75 Automated blood lymphocytes/100 leukocytes 32 % 12-44 Blood monocytes/100 leukocytes 9 % 0-12 Automated blood eosinophils/100 leukocytes 1 % 0-10 Automated blood basophils/100 leukocytes 1 % 0-10 Blood neutrophils automated count (number/volume) 4.3 10*3 1.8-7.8 Blood lymphocytes automated count (number/volume) 2.4 10*3 1.0-4.0 Blood monocytes automated count (number/volume) 0. 7 10*3 0.0-1.0 Automated eosinophil count 0.1 10*3/uL 0 .0-0.3 Automated blood basophil count (count/volume) 0.1 10*3/uL 0.0-0.1 Blood blood smear finding identification by light micr oscopy YES NRG Methicillin resistant Staphylococcus aur eus (MRSA) screening culture - 06/03/19 10:15 Methicillin resistant Staphylococcus aureus (MRSA) scr eening culture NEG NRG Encounters ACCT No. Visit Date/Time Discharge Status Pt. Type Provider Facility Loc./Unit Complaint [id number] 10/13/2018 13:00:00 10/13/2018 23:59:5 9 CLS Outpatient OLIVIA JOYCE APRN [facility] [id number] 10/13/2018 13:00:00 Document Registration [id number] 07/25/2018 08:40:00 Document Registration [id number] 04/14/2018 17:20:00 Document Registration [id number] 01/02/2018 11:20:00 Document Registration [id number] 10/21/2017 08:40:00 Document Registration [id number] 06/12/2019 13:57:00 23:59:59 CLS Outpatient SANJAY MERCEDES V [facility] ONC [id number] 06/03/2019 07:46:00 13:23:00 DIS Outpatient PORFIRIO PEMBERTON MD [facility] CERVICAL CANCER [id number] 06/02/2019 12:51:00 020 13:17:00 DIS Outpatient PORFIRIO PEMBERTON MD [facility] PREOP CERVICAL CANCER [id number] 03/10/2019 07:33:00 019 17:00:00 DIS Outpatient YFN QUEZADA DO [facility] CERVICAL DYSPLASIA, QUIQUE 3 [id number] 02/17/2019 09:00:00 10:04:00 DIS Outpatient YFN QUEZADA DO [facility] PREOP CERVICAL DYSPLASIA, QUIQUE 3 [id number] 02/04/2019 10:07:00 019 23:59:59 CLS Outpatient YFN QUEZADA DO [facility] RAD MENORRHAGIA [id number] 08/08/2018 08:04:00 019 23:59:59 CLS Outpatient POP MCHUGH APRN [facility] RAD SCREENING [id number] 02/13/2018 09:07:00 018 23:59:59 CLS Outpatient OLIVIA JOYCE [facility] CARD SOB [id number] 07/29/2017 07:42:00 018 23:59:59 CLS Outpatient OLIVIA JOYCE [facility] RAD ANXIETY [id number] 02/17/2013 12:30:00 02/17/2013 23:59: 59 CLS Outpatient OLIVIA JOYCE APRN
[2019-06-16] MEDS ORDERED: LORazepam 1 MG (ATIVAN) TAB PO PRN (19:00)
[2019-06-16] MEDS ORDERED: LORazepam INJ 2 MG/ML (ATIVAN) VIAL IV PRN (19:00)
[2019-06-16] MEDS ORDERED: CATHETER FLUSH 10 ML SYR IV PRN (19:00)
[2019-06-16] MEDS: NS IV 1000 ML 1,000 ML IV SCH (19:05)
--- OUTSIDE RECORDS SUMMARY | 2019-06-16 19:16 | XMS REPORT | Continuity of Care Document ---
Author Organization Unknown Address Unknown Phone Unavailable Allergies Active Description Code Type Severity Reaction Onset Reported/Identified Relationship to Patient Clinical Status Yes No Allergy Information Available [id number] Drug Allergy Unknown N/A 018 Yes aspirin [id number] Drug Allergy Unknown N/A 02/17/2019 Yes aspirin [id number] Drug Allergy Severe VOMITTING,FEVER 06/02/2019 Medications There [...] F41.9 ANXIETY DISORDER, UNSPECIFIED 01/07/2018 OLIVIA JOYCE INVERTEBRATE PALEONTOLOGIST Ot H93.8X1 OTHER SPECIFIED DISORDERS OF RIGHT EAR 01/07/2018 ISIAH OLIVIA Keegan INVERTEBRATE PALEONTOLOGIST Ot F2 2 DELUSIONAL DISORDERS 01/07/2018 ISIAH OLIVIA Keegan INVERTEBRATE PALEONTOLOGIST Ot F41.9 ANXIETY DISORDER, UNSPECIFIED 01/07/2018 ISIAHOLIVIA INVERTEBRATE PALEONTOLOGIST Ot H93.8X1 OTHER SPECIFIED DISORDERS OF RIGHT EAR 02/12/2018 OLIVIA JOYCEP Ot F2 2 DELUSIONAL DISORDERS 02/12/2018 ISIAH OLIVIA Keegan INVERTEBRATE PALEONTOLOGIST Ot F41.9 ANXIETY DISORDER, UNSPECIFIED 02/12/2018 ISIAH OLIVIA Keegan INVERTEBRATE PALEONTOLOGIST Ot H93.8X1 OTHER SPECIFIED DISORDERS OF RIGHT EAR 02/12/2018 ISIAH OLIVIA Keegan MAINP Ot F2 2 DELUSIONAL DISORDERS 02/12/2018 ISIAH OLIVIA Keegan INVERTEBRATE PALEONTOLOGIST Ot F41.9 ANXIETY DISORDER, UNSPECIFIED 02/12/2018 ISIAH OLIVIA Keegan MAINP Ot H93.8X1 OTHER SPECIFIED DISORDERS OF RIGHT EAR 02/17/2018 ISIAH OLIVIA Keegan INVERTEBRATE PALEONTOLOGIST Ot I35.1 NONRHEUMATIC AORTIC (VALVE) INSUFFICIENC 02/17/2018 ISIAH OLIVIA Kegean INVERTEBRATE PALEONTOLOGIST Ot R01.1 CARDIAC MURMUR, UNSPECIFIED 02/17/2018 ISIAH OLIVIA Keegan INVERTEBRATE PALEONTOLOGIST Ot R06.02 SHORTNESS OF BREATH 03/07/2018 ISIAH OLIVIA Keegan INVERTEBRATE PALEONTOLOGIST Ot I35.1 NONRHEUMATIC AORTIC (VALVE) INSUFFICIENC 03/07/2018 ISIAH OLIVIA Keegan INVERTEBRATE PALEONTOLOGIST Ot R01.1 CARDIAC MURMUR, UNSPECIFIED 03/07/2018 ISIAH OLIVIA Keegan INVERTEBRATE PALEONTOLOGIST Ot R06.02 SHORTNESS OF BREATH 03/24/2018 ISIAH OLIVIA Keegan INVERTEBRATE PALEONTOLOGIST Ot I35.1 NONRHEUMATIC AORTIC (VALVE) INSUFFICIENC 03/24/2018 ISIAH OLIVIA Keegan INVERTEBRATE PALEONTOLOGIST Ot R01.1 CARDIAC MURMUR, UNSPECIFIED 03/24/2018 ISIAH OLIVIA Keegan INVERTEBRATE PALEONTOLOGIST Ot R06.02 SHORTNESS OF BREATH 07/28/2018 OLIVIA JOYCE INVERTEBRATE PALEONTOLOGIST Ot F2 2 DELUSIONAL DISORDERS 07/28/2018 ISIAH OLIVIA Keegan INVERTEBRATE PALEONTOLOGIST Ot F41.9 ANXIETY DISORDER, UNSPECIFIED 07/28/2018 ISIAH OLIVIA Keegan INVERTEBRATE PALEONTOLOGIST Ot H93.8X1 OTHER SPECIFIED DISORDERS OF RIGHT EAR 07/28/2018 ISIAH OLIVIA Keegan INVERTEBRATE PALEONTOLOGIST Ot I35.1 NONRHEUMATIC AORTIC (VALVE) INSUFFICIENC 07/28/2018 [...] ENCNTR SCREEN MAMMOGRAM FOR MALIGNANT NE 08/25/2018 POP MCHUGH APRN Ot Z12.31 ENCNTR SCREEN [...] Ot F41.9 ANXIETY DISORDER, UNSPECIFIED 03/10/2019 DAMIEN SHOEMAKER YFN C Ot J44.9 CHRONIC OBSTRUCTIVE PULMONARY DISEASE, U 03/10/2019 DAMIEN SHOEMAKER YFN C Ot K21.9 GASTRO-ESOPHAGEAL REFLUX DISEASE WITHOUT 03/10/2019 DAMIEN SHOEMAKER YFN C Ot N92.0 EXCESSIVE AND FREQUENT MENSTRUATION WITH 03/10/2019 QUEZADA DO, YFN C Ot N94.5 SECONDARY DYSMENORRHEA 03/10/2019 QUEZADA DO, YFN C Ot Z79.8 99 OTHER INVESTMENT FUND MANAGER (CURRENT) DRUG THERAPY 03/10/2019 QUEZADA DO, YFN [...] DO, YFN C Ot Z79.8 99 OTHER JAIL (CURRENT) DRUG THERAPY 03/16/2019 QUEZADA DO, YFN [...] DO YFN C Ot Z79.8 99 OTHER INVESTMENT FUND MANAGER (CURRENT) DRUG THERAPY 03/18/2019 QUEZADA DO YFN C Ot Z82.3 FAMILY HISTORY OF STROKE 03/18/2019 QUEZADA DOANTHONYA C Ot Z82.4 9 FAMILY HX [...] ANEMIA SECONDARY TO BLOO 05/28/2019 DAREN, SANJAY Mares Ot J44.9 CHRONIC OBSTRUCTIVE [...] PORFIRIO PEMBERTON MD, Ot Z79.89 9 OTHER JAIL (CURRENT) DRUG THERAPY 06/08/2019 PORFIRIO PEMBERTON MD, Ot Z80.41 FAMILY HISTORY OF MALIGNANT NEOPLASM OF 06/08/2019 PORFIRIO PEMBERTNO MD, Ot Z80.49 FAMILY HISTORY OF MALIGNANT NEOPLASM OF Procedures There is no data. Results Test Result Range CMP - 10/21/17 08:40 GLUCOSE 80 mg/dL 65-99 UREA NITROGEN (BUN) 9 mg/dL 7-25 CREATININE 0.49 mg/dL 0.50-1.10 eGFR NON-AFR. KAZAKH 118 mL/min/1.73m2 > OR = 60 eGFR [...] NRG STATEMENT OF ADEQUACY: NRG INTERPRETATION/RESULT: NRG ROAD GRADER OPERATOR: NRG HPV mRNA E6/E7, SUREPATH VIAL Detected [...] Automated blood platelet mean volume measurement T DIVISION [employer] 7.4- 10.4 Automated blood neutrophils/100 leukocytes 60 [...] pa alem - 03/10/19 09:05 WRISTBAND NUMBER [id number] NRG ABO+Rh group AP NRG Blood group [...] Status Pt. Type Provider Facility Loc./Unit Complaint [id number] 10/13/2018 13:00:00 10/13/2018 23:59:5 9 CLS Outpatient OLIVIA JOYCE APRN [facility] [id number] 10/13/2018 13:00:00 Document Registration [id number] 07/25/2018 08:40:00 Document Registration [id number] 04/14/2018 17:20:00 Document Registration [id number] 01/02/2018 11:20:00 Document Registration [id number] 10/21/2017 08:40:00 Document Registration [id number] 06/12/2019 13:57:00 23:59:59 CLS Outpatient SANJAY MERCEDES V [facility] ONC [id number] 06/03/2019 07:46:00 13:23:00 DIS Outpatient PORFIRIO PEMBERTON MD [facility] CERVICAL CANCER [id number] 06/02/2019 12:51:00 020 13:17:00 DIS Outpatient PORFIRIO PEMBERTON MD [facility] PREOP CERVICAL CANCER [id number] 03/10/2019 07:33:00 019 17:00:00 DIS Outpatient YFN QUEZADA DO [facility] CERVICAL DYSPLASIA, QUIQUE 3 [id number] 02/17/2019 09:00:00 10:04:00 DIS Outpatient YFN QUEZADA DO [facility] PREOP CERVICAL DYSPLASIA, QUIQUE 3 [id number] 02/04/2019 10:07:00 019 23:59:59 CLS Outpatient YFN QUEZADA DO [facility] RAD MENORRHAGIA [id number] 08/08/2018 08:04:00 019 23:59:59 CLS Outpatient POP MCHUGH APRN [facility] RAD SCREENING [id number] 02/13/2018 09:07:00 018 23:59:59 CLS Outpatient OLIVIA JOYCE [facility] CARD SOB [id number] 07/29/2017 07:42:00 018 23:59:59 CLS Outpatient OLIVIA JOYCE [facility] RAD ANXIETY [id number] 02/17/2013 12:30:00 02/17/2013 23:59: 59 CLS Outpatient OLIVIA JOYCE APRN
[2019-06-16] MEDS: POTASSIUM CL 10 MEQ/50 ML IVPB (PRE-MIX) IV SCH ×4 (19:50→23:25)
[2019-06-16] MEDS ORDERED: RT-ALBUTEROL HFA (PROAIR HFA) 8.5 GM IH PRN (20:30)
--- NOTE | 2019-06-16 22:00 | NUR ---
LEFT CHEST PORT ACCESSED BY THIS RN, PT TOLERATED WELL
[2019-06-17] VITALS: BP 115/56
[2019-06-17 01:00] VITALS: BP 143/77
[2019-06-17 01:20] LABS: AMPHETAMINE SCREEN, URINE NEGATIVE (NEGATIVE); BARBITURATE SCREEN URINE NEGATIVE (NEGATIVE); BENZODIAZEPINES SCREEN URINE POSITIVE (NEGATIVE); CANNABINOID SCREEN, URINE NEGATIVE (NEGATIVE); COCAINE SCREEN URINE NEGATIVE (NEGATIVE); METHADONE STAT NEGATIVE (NEGATIVE); METHAMPHETAMINE SCREEN URINE S NEGATIVE (NEGATIVE); OPIATE SCREEN URINE NEGATIVE (NEGATIVE); OXYCODONE STAT NEGATIVE (NEGATIVE); PROPOXYPHENE STAT NEGATIVE (NEGATIVE); TRICYCLIC ANTIDEPRESSANTS SCRE NEGATIVE (NEGATIVE)
[2019-06-17 02:00] VITALS: BP 126/66
[2019-06-17] MEDS: NS IV 1000 ML 1,000 ML IV SCH (02:58)
[2019-06-17 03:07] LABS: BASOPHILS % (AUTO) 0 % (0-10); EOSINOPHILS % (AUTO) 0 % (0-10); HEMATOCRIT 33 % (35-52); HEMOGLOBIN 10.9 G/DL (11.5-16.0); LYMPHOCYTES # (AUTO) 0.7 X 10^3 (1.0-4.0); LYMPHOCYTES % (AUTO) 6 % (12-44); MEAN CORPUSCULAR HEMOGLOBIN 31 PG (25-34); MEAN CORPUSCULAR HGB CONC 33 G/DL (32-36); MEAN CORPUSCULAR VOLUME 94 FL (80-99); MEAN PLATELET VOLUME 9.7 FL (7.4-10.4); MONOCYTES # (AUTO) 0.7 X 10^3 (0.0-1.0); MONOCYTES % (AUTO) 7 % (0-12); NEUTROPHILS # (AUTO) 9.5 X 10^3 (1.8-7.8); NEUTROPHILS % (AUTO) 87 % (42-75); PLATELET COUNT 231 10^3/uL (130-400); RED CELL DISTRIBUTION WIDTH 15.3 % (10.0-14.5); WHITE BLOOD COUNT 10.9 10^3/uL (4.3-11.0)
[2019-06-17 03:22] LABS: BUN/CREATININE RATIO 10; CALCIUM 8.1 MG/DL (8.5-10.1); CARBON DIOXIDE 16 MMOL/L (21-32); CHLORIDE 112 MMOL/L (98-107); CREATININE SERUM 0.63 MG/DL (0.60-1.30); GFR ESTIMATED > 60; GLUCOSE 156 MG/DL (70-105); POTASSIUM 3.9 MMOL/L (3.6-5.0); SODIUM 141 MMOL/L (135-145)
[2019-06-17 04:00] VITALS: BP 138/61
[2019-06-17 08:00] VITALS: BP 149/78
[2019-06-17] MEDS ORDERED: RT-ALBUTEROL HFA (PROAIR HFA) 8.5 GM IH SCH (08:00)
[2019-06-17] MEDS ORDERED: ENOXAPARIN 40 MG/0.4 ML (LOVENOX) SYR SQ SCH (09:00)
[2019-06-17] MEDS ORDERED: ALPR0.254 PO (10:04)
--- NOTE | 2019-06-17 10:14 | Discharge Summary ---
Discharge Summary Hospital Course Was the Problem List Reviewed?: Yes Hospital Course Date of Admission: Jun 16, 2019 at 17:30 Admission Diagnosis : Shortness of breath Family Physician/Provider: Xander Doyle Date of Discharge: 06/17/19 Discharge Diagnosis: Anxiety Hospital Course: Priyanka Brewster is a 43-year-old female with past medical history of cervical cancer currently undergoing chemoradiation who presented with shortness of breath. She reported that she had received chemotherapy on Saturday. On Saturday evening she was taking a shower while simultaneously using multiple cleaning supplies. She subsequently developed shortness of breath. She became anxious about the situation which compounded her dyspnea. She then decided to come into the emergency room. After receiving IV fluids and anxiety medication her symptoms improved. She was found to have a leukocytosis and tachycardia which both resolved. She was tested for SARS-CoV2 and the tests were pending at the time of discharge. She was recommended to self quarantine at home. The cancer center will be in touch with her about her ongoing chemotherapy and radiation. She was given a small prescription of Xanax to use as needed for anxiety until she can follow-up with her primary care. Labs and Pending Lab Test: Laboratory Tests 06/16/19 15:53: White Blood Count 22.0H, Red Blood Count 4.10L, Hemoglobin 12.7, Hematocrit 39, Mean Corpuscular Volume 94, Mean Corpuscular Hemoglobin 31, Mean Corpuscular Hemoglobin Concent 33, Red Cell Distribution Width 15.5H, Platelet Count 233, Mean Platelet Volume 10.6H, Neutrophils (%) (Auto) 92H, Lymphocytes (%) (Auto) 2L, Monocytes (%) (Auto) 6, Eosinophils (%) (Auto) 0, Basophils (%) (Auto) 0, Neutrophils # (Auto) 20.3H, Lymphocytes # (Auto) 0.4L, Monocytes # (Auto) 1.3H, Eosinophils # (Auto) 0.0, Basophils # (Auto) 0.0, Neutrophils % (Manual) 95, Lymphocytes % (Manual) 1, Monocytes % (Manual) 4, Hypochromasia MODERATE, Anis ocytosis SLIGHT, D-Dimer < 0.27, Sodium Level 139, Potassium Level 2.8L, Chloride Level 109H, Carbon Dioxide Level 12L, Anion Gap 18H, Blood Urea Nitrogen 8, Creatinine 0.81, Estimat Glomerular Filtration Rate > 60, BUN/Creatinine Ratio 10, Glucose Level 312H, Calcium Level 9.0, Corrected Calcium 8.8, Magnesium Level 2.0, Total Bilirubin 0.2, Aspartate Amino Transf (AST/SGOT) 26, Alanine Aminotransferase (ALT/SGPT) 48, Alkaline Phosphatase 104, Troponin I < 0.028, C-Reactive Protein High Sensitivity 0.15, B-Type Natriuretic Peptide 61.5, Total Protein 6.9, Albumin 4.2, Procalcitonin 0.02 06/16/19 16:58: Coronavirus (COVID-19)(PCR) [Pending] 06/17/19 01:00: Urine Opiates Screen NEGATIVE, Urine Oxycodone Screen NEGATIVE, Urine Methadone Screen NEGATIVE, Urine Propoxyphene Screen NEGATIVE, Urine Barbiturates Screen NEGATIVE, Ur Tricyclic Antidepressants Screen NEGATIVE, Urine Phencyclidine Screen NEGATIVE, Urine Amphetamines Screen NEGATIVE, Urine Methamphetamines Screen NEGATIVE, Urine Benzodiazepines Screen POSITIVEH, Urine Cocaine Screen NEGATIVE, Urine Cannabinoids Screen NEGATIVE 06/17/19 02:55: White Blood Count 10.9, Red Blood Count 3.56L, Hemoglobin 10.9L, Hematocrit 33L, Mean Corpuscular Volume 94, Mean Corpuscular Hemoglobin 31, Mean Corpuscular Hemoglobin Concent 33, Red Cell Distribution Width 15.3H, Platelet Count 231, Mean Platelet Volume 9.7, Neutrophils (%) (Auto) 87H, Lymphocytes (%) (Auto) 6L, Monocytes (%) (Auto) 7, Eosinophils (%) (Auto) 0, Basophils (%) (Auto) 0, Neutrophils # (Auto) 9.5H, Lymphocytes # (Auto) 0.7L, Monocytes # (Auto) 0.7, Eosinophils # (Auto) 0.0, Basophils # (Auto) 0.0, Sodium Level 141, Potassium Level 3.9, Chloride Level 112H, Carbon Dioxide Level 16L, Anion Gap 13, Blood Urea Nitrogen 6L, Creatinine 0.63, Estimat Glomerular Filtration Rate > 60, BUN/Creatinine Ratio 10, Glucose Level 156H, Calcium Level 8.1L Home Meds Active Alprazolam 0.25 Mg Tablet 0.25 Mg PO TID PRN 7 Days Lortab 7.5-325 Mg/15 Ml Udc (Acetaminophen/Hydrocodone Bitart) 15 Ml Solution 15 Ml PO Q4H Ibu (Ibuprofen) 600 Mg Tablet 600 Mg PO Q6HR Reported Venlafaxine HCl 37.5 Mg Tab 37.5 Mg PO DAILY Paroxetine HCl 40 Mg Tablet 40 Mg PO DAILY Assessment/Pt Instructions Take medications as prescribed. The Cancer Center well call you for follow-up. He will need to go home and self quarantine. He will be contacted regarding your test results. Discharge Planning: <30 minutes discharge planning Discharge Instructions Discharge Diet: No Restrictions Activity as Tolerated: Yes Pneumonia Vaccine Order Indica: Yes Discharge Physical Examination Vital Signs Vital Signs Date Time Temp Pulse Resp B/P (MAP) Pulse Ox O2 Delivery O2 Flow Rate FiO2 06/17/19 09:50 94 Room Air 06/17/19 08:00 98 18 149/78 (101) 06/17/19 04:02 36.7 General Appearance: No Apparent Distress, WD/WN Respiratory: Lungs Clear, Normal Breath Sounds, No Respiratory Distress Cardiovascular: Regular Rate, Rhythm, No Edema, No Murmur Gastrointestinal: Normal Bowel Sounds, Non Tender, Soft Extremity: Normal Inspection, Non Tender, No Pedal Edema Skin: Normal Color, Warm/Dry Neurologic/Psychiatric: Alert, Oriented x3, No Motor/Sensory Deficits, Normal Mood/Affect Allergies: Coded Allergies: aspirin (Verified Allergy, Severe, VOMITTING,FEVER,SWELLING, 06/02/19) Copy Copies To 1: TALIA PEDROZA MD Discharge Summary Date of Admission Jun 16, 2019 at 17:30 Date of Discharge Discharge Date: Jun 17, 2019 Discharge Time: 10:13 Admission Diagnosis Shortness of breath Discharge Diagnosis (1) Anxiety Status: Acute (2) Exposure to chemical inhalation Status: Acute Clinical Quality Measures DVT/VTE Risk/Contraindication: Risk Factor Score Per Nursin RFS Level Per Nursing on Admit: 4+=Very High SANA HUNG MD Jun 17, 2019 10:12
--- NOTE | 2019-06-17 10:30 | NUR ---
Discharge order placed by physician. Bill RN with infection control contacted to update her on patients discharge order being placed. Bill RN came up to ICU and spoke with patient regarding Covid-19 pending results and the steps that must be taken until results are received, patient updated that the health department will be notified and they will keep in touch with patient. Patient notified that she must self quarantine until results have been identified. Left chest port deaccessed, tip intact, gauze and tape applied to site. Entire discharge packet discussed with patient including new medication order. After going through the discharge packet with the patient, the patient reports that she does not have any further questions att. Bill RN with infection control advised this nurse to wear droplet isolation PPE to take patient to private vehicle, but that an individual not in PPE must come with this nurse to hold door and press the elevator buttons etc. so individual in PPE does not touch any surfaces and for patient to wear a surgical mask. Patient leaving floor at 1110 This nurse took patient to font entrance in PPE, patient wearing surgical mask, JOSE Jacome came with me to hold the door and press the elevator button. Patient received a phone call form the health department while taking patient to front entrance. Patients daughter is her ride home. Wheel chair disinfected with viricide wipes.
== END 2019-06-17 09:59 | disposition home or self-care (01) ==
LOC: EDUNIT# 15:37 → ER 15:39 → UNDOADMOB 17:30 → ICU 17:30 → UNDODISOB 06-17 11:10
PROVIDERS: ADMIT Family Medicine; ATTEND Family Medicine
DX: F41.9 Anxiety disorder, unspecified (principal); Z77.098 Contact with and (suspected) exposure to other hazardous, chiefly nonmedicinal, chemicals; C53.9 Malignant neoplasm of cervix uteri, unspecified; D72.829 Elevated white blood cell count, unspecified; F17.210 Nicotine dependence, cigarettes, uncomplicated; G89.29 Other chronic pain; M54.9 Dorsalgia, unspecified; F32.9 Major depressive disorder, single episode, unspecified; D64.9 Anemia, unspecified; E87.6 Hypokalemia; Z79.899 Other long term (current) drug therapy; Z88.6 Allergy status to analgesic agent; Z83.3 Family history of diabetes mellitus; Z82.49 Family history of ischemic heart disease and other diseases of the circulatory system
CPT/HCPCS: 36415; 71045; 80048; 80053; 80306; 83735; 83880; 84145; 84484; 85007; 85025; 85027; 85379; 86141; 87635; 93005; 94640; 96361; 96374

== ENCOUNTER 2019-07-17 07:36 | Outpatient (RCR) | payer MEDICAID ==
[2019-05-12 15:06] LABS: BASOPHILS # (AUTO) 0.1 10^3/uL (0.0-0.1); BASOPHILS % (AUTO) 1 % (0-10); EOSINOPHILS # (AUTO) 0.1 10^3/uL (0.0-0.3); EOSINOPHILS % (AUTO) 2 % (0-10); HEMATOCRIT 42 % (35-52); HEMOGLOBIN 14.1 G/DL (11.5-16.0); LYMPHOCYTES # (AUTO) 2.2 X 10^3 (1.0-4.0); LYMPHOCYTES % (AUTO) 32 % (12-44); MEAN CORPUSCULAR HEMOGLOBIN 29 PG (25-34); MEAN CORPUSCULAR HGB CONC 33 G/DL (32-36); MEAN CORPUSCULAR VOLUME 85 FL (80-99); MEAN PLATELET VOLUME 10.1 FL (7.4-10.4); MONOCYTES # (AUTO) 0.6 X 10^3 (0.0-1.0); MONOCYTES % (AUTO) 8 % (0-12); NEUTROPHILS # (AUTO) 4.1 X 10^3 (1.8-7.8); NEUTROPHILS % (AUTO) 58 % (42-75); PLATELET COUNT 227 10^3/uL (130-400); RED CELL DISTRIBUTION WIDTH 24.2 % (10.0-14.5)
[2019-05-12 15:29] LABS: ALANINE AMINOTRANSFERASE 47 U/L (0-55); ALBUMIN 4.4 GM/DL (3.2-4.5); ALKALINE PHOSPHATASE 122 U/L (40-136); BILIRUBIN,TOTAL 0.6 MG/DL (0.1-1.0); BUN/CREATININE RATIO 10; CALCIUM 9.8 MG/DL (8.5-10.1); CARBON DIOXIDE 23 MMOL/L (21-32); CHLORIDE 108 MMOL/L (98-107); CREATININE SERUM 0.72 MG/DL (0.60-1.30); GFR ESTIMATED > 60; GLUCOSE 85 MG/DL (70-105); POTASSIUM 3.9 MMOL/L (3.6-5.0); SODIUM 140 MMOL/L (135-145); TOTAL PROTEIN 7.3 GM/DL (6.4-8.2)
[2019-06-08 12:59] LABS: BASOPHILS # (AUTO) 0.1 10^3/uL (0.0-0.1); BASOPHILS % (AUTO) 1 % (0-10); EOSINOPHILS # (AUTO) 0.2 10^3/uL (0.0-0.3); EOSINOPHILS % (AUTO) 2 % (0-10); HEMATOCRIT 38 % (35-52); HEMOGLOBIN 12.6 G/DL (11.5-16.0); LYMPHOCYTES # (AUTO) 1.8 X 10^3 (1.0-4.0); LYMPHOCYTES % (AUTO) 24 % (12-44); MEAN CORPUSCULAR HEMOGLOBIN 31 PG (25-34); MEAN CORPUSCULAR HGB CONC 34 G/DL (32-36); MEAN CORPUSCULAR VOLUME 91 FL (80-99); MONOCYTES # (AUTO) 0.6 X 10^3 (0.0-1.0); MONOCYTES % (AUTO) 8 % (0-12); NEUTROPHILS # (AUTO) 4.9 X 10^3 (1.8-7.8); NEUTROPHILS % (AUTO) 66 % (42-75); PLATELET COUNT 235 10^3/uL (130-400); RED CELL DISTRIBUTION WIDTH 16.3 % (10.0-14.5); WHITE BLOOD COUNT 7.5 10^3/uL (4.3-11.0)
[2019-06-08 13:18] LABS: ALANINE AMINOTRANSFERASE 55 U/L (0-55); ALBUMIN 4.1 GM/DL (3.2-4.5); ALKALINE PHOSPHATASE 98 U/L (40-136); BILIRUBIN,TOTAL 0.3 MG/DL (0.1-1.0); BUN/CREATININE RATIO 10; CALCIUM 9.2 MG/DL (8.5-10.1); CARBON DIOXIDE 23 MMOL/L (21-32); CHLORIDE 108 MMOL/L (98-107); CREATININE SERUM 0.68 MG/DL (0.60-1.30); GFR ESTIMATED > 60; GLUCOSE 89 MG/DL (70-105); MAGNESIUM 2.2 MG/DL (1.6-2.4); POTASSIUM 3.7 MMOL/L (3.6-5.0); SODIUM 140 MMOL/L (135-145); TOTAL PROTEIN 6.7 GM/DL (6.4-8.2)
[2019-06-15 13:28] LABS: BASOPHILS % (AUTO) 1 % (0-10); EOSINOPHILS # (AUTO) 0.1 10^3/uL (0.0-0.3); EOSINOPHILS % (AUTO) 1 % (0-10); HEMATOCRIT 38 % (35-52); HEMOGLOBIN 12.9 G/DL (11.5-16.0); LYMPHOCYTES # (AUTO) 1.1 X 10^3 (1.0-4.0); LYMPHOCYTES % (AUTO) 13 % (12-44); MEAN CORPUSCULAR HEMOGLOBIN 31 PG (25-34); MEAN CORPUSCULAR HGB CONC 34 G/DL (32-36); MEAN CORPUSCULAR VOLUME 92 FL (80-99); MONOCYTES # (AUTO) 0.5 X 10^3 (0.0-1.0); MONOCYTES % (AUTO) 7 % (0-12); NEUTROPHILS # (AUTO) 6.3 X 10^3 (1.8-7.8); NEUTROPHILS % (AUTO) 79 % (42-75); PLATELET COUNT 250 10^3/uL (130-400); RED CELL DISTRIBUTION WIDTH 14.9 % (10.0-14.5)
[2019-06-15 13:47] LABS: BUN/CREATININE RATIO 11; CARBON DIOXIDE 24 MMOL/L (21-32); CHLORIDE 105 MMOL/L (98-107); CREATININE SERUM 0.65 MG/DL (0.60-1.30); GFR ESTIMATED > 60; GLUCOSE 95 MG/DL (70-105); POTASSIUM 3.9 MMOL/L (3.6-5.0); SODIUM 138 MMOL/L (135-145)
[2019-06-22 13:45] LABS: BASOPHILS % (AUTO) 1 % (0-10); EOSINOPHILS # (AUTO) 0.1 10^3/uL (0.0-0.3); EOSINOPHILS % (AUTO) 2 % (0-10); HEMATOCRIT 37 % (35-52); HEMOGLOBIN 12.7 G/DL (11.5-16.0); LYMPHOCYTES # (AUTO) 0.8 X 10^3 (1.0-4.0); LYMPHOCYTES % (AUTO) 12 % (12-44); MEAN CORPUSCULAR HEMOGLOBIN 32 PG (25-34); MEAN CORPUSCULAR HGB CONC 34 G/DL (32-36); MEAN CORPUSCULAR VOLUME 92 FL (80-99); MEAN PLATELET VOLUME 9.3 FL (7.4-10.4); MONOCYTES # (AUTO) 0.6 X 10^3 (0.0-1.0); MONOCYTES % (AUTO) 9 % (0-12); NEUTROPHILS # (AUTO) 5.1 X 10^3 (1.8-7.8); NEUTROPHILS % (AUTO) 77 % (42-75); PLATELET COUNT 183 10^3/uL (130-400); RED CELL DISTRIBUTION WIDTH 14.2 % (10.0-14.5); WHITE BLOOD COUNT 6.6 10^3/uL (4.3-11.0)
[2019-06-22 14:03] LABS: ALANINE AMINOTRANSFERASE 38 U/L (0-55); ALBUMIN 3.9 GM/DL (3.2-4.5); ALKALINE PHOSPHATASE 120 U/L (40-136); BILIRUBIN,TOTAL 0.2 MG/DL (0.1-1.0); BUN/CREATININE RATIO 10; CALCIUM 8.8 MG/DL (8.5-10.1); CARBON DIOXIDE 21 MMOL/L (21-32); CHLORIDE 107 MMOL/L (98-107); CREATININE SERUM 0.67 MG/DL (0.60-1.30); GFR ESTIMATED > 60; GLUCOSE 78 MG/DL (70-105); MAGNESIUM 2.1 MG/DL (1.6-2.4); SODIUM 138 MMOL/L (135-145); TOTAL PROTEIN 6.5 GM/DL (6.4-8.2)
[2019-06-29 12:54] LABS: BASOPHILS % (AUTO) 1 % (0-10); EOSINOPHILS # (AUTO) 0.1 10^3/uL (0.0-0.3); EOSINOPHILS % (AUTO) 2 % (0-10); HEMATOCRIT 40 % (35-52); HEMOGLOBIN 13.2 G/DL (11.5-16.0); LYMPHOCYTES # (AUTO) 0.6 X 10^3 (1.0-4.0); LYMPHOCYTES % (AUTO) 13 % (12-44); MEAN CORPUSCULAR HEMOGLOBIN 31 PG (25-34); MEAN CORPUSCULAR HGB CONC 33 G/DL (32-36); MEAN CORPUSCULAR VOLUME 93 FL (80-99); MEAN PLATELET VOLUME 9.4 FL (7.4-10.4); MONOCYTES # (AUTO) 0.5 X 10^3 (0.0-1.0); MONOCYTES % (AUTO) 11 % (0-12); NEUTROPHILS # (AUTO) 3.4 X 10^3 (1.8-7.8); NEUTROPHILS % (AUTO) 74 % (42-75); PLATELET COUNT 179 10^3/uL (130-400); RED CELL DISTRIBUTION WIDTH 14.9 % (10.0-14.5); WHITE BLOOD COUNT 4.6 10^3/uL (4.3-11.0)
[2019-06-29 13:00] LABS: CHLORIDE 105 MMOL/L (98-107); POTASSIUM 3.7 MMOL/L (3.6-5.0); SODIUM 137 MMOL/L (135-145)
[2019-06-29 13:02] LABS: GLUCOSE 110 MG/DL (70-105)
[2019-06-29 13:03] LABS: CARBON DIOXIDE 22 MMOL/L (21-32)
[2019-06-29 13:06] LABS: BUN/CREATININE RATIO 11; CREATININE SERUM 0.71 MG/DL (0.60-1.30); GFR ESTIMATED > 60
[2019-06-29 13:08] LABS: MAGNESIUM 2.1 MG/DL (1.6-2.4)
[2019-07-06 13:08] LABS: BASOPHILS % (AUTO) 0 % (0-10); EOSINOPHILS # (AUTO) 0.1 10^3/uL (0.0-0.3); EOSINOPHILS % (AUTO) 2 % (0-10); HEMATOCRIT 33 % (35-52); HEMOGLOBIN 11.2 G/DL (11.5-16.0); LYMPHOCYTES # (AUTO) 0.7 X 10^3 (1.0-4.0); LYMPHOCYTES % (AUTO) 14 % (12-44); MEAN CORPUSCULAR HEMOGLOBIN 32 PG (25-34); MEAN CORPUSCULAR HGB CONC 34 G/DL (32-36); MEAN CORPUSCULAR VOLUME 95 FL (80-99); MEAN PLATELET VOLUME 9.1 FL (7.4-10.4); MONOCYTES # (AUTO) 0.4 X 10^3 (0.0-1.0); MONOCYTES % (AUTO) 9 % (0-12); NEUTROPHILS # (AUTO) 3.4 X 10^3 (1.8-7.8); NEUTROPHILS % (AUTO) 75 % (42-75); PLATELET COUNT 175 10^3/uL (130-400); RED CELL DISTRIBUTION WIDTH 14.8 % (10.0-14.5); WHITE BLOOD COUNT 4.5 10^3/uL (4.3-11.0)
[2019-07-06 13:28] LABS: ALANINE AMINOTRANSFERASE 29 U/L (0-55); ALBUMIN 3.8 GM/DL (3.2-4.5); ALKALINE PHOSPHATASE 113 U/L (40-136); BILIRUBIN,TOTAL 0.3 MG/DL (0.1-1.0); BUN/CREATININE RATIO 8; CARBON DIOXIDE 25 MMOL/L (21-32); CHLORIDE 106 MMOL/L (98-107); CREATININE SERUM 0.63 MG/DL (0.60-1.30); GFR ESTIMATED > 60; GLUCOSE 88 MG/DL (70-105); MAGNESIUM 2.1 MG/DL (1.6-2.4); POTASSIUM 3.9 MMOL/L (3.6-5.0); SODIUM 139 MMOL/L (135-145); TOTAL PROTEIN 6.5 GM/DL (6.4-8.2)
[2019-07-13 13:30] LABS: BASOPHILS % (AUTO) 0 % (0-10); EOSINOPHILS % (AUTO) 1 % (0-10); HEMATOCRIT 32 % (35-52); HEMOGLOBIN 10.8 G/DL (11.5-16.0); LYMPHOCYTES # (AUTO) 0.5 X 10^3 (1.0-4.0); LYMPHOCYTES % (AUTO) 12 % (12-44); MEAN CORPUSCULAR HEMOGLOBIN 33 PG (25-34); MEAN CORPUSCULAR HGB CONC 33 G/DL (32-36); MEAN CORPUSCULAR VOLUME 98 FL (80-99); MEAN PLATELET VOLUME 9.9 FL (7.4-10.4); MONOCYTES # (AUTO) 0.4 X 10^3 (0.0-1.0); MONOCYTES % (AUTO) 8 % (0-12); NEUTROPHILS # (AUTO) 3.7 X 10^3 (1.8-7.8); NEUTROPHILS % (AUTO) 79 % (42-75); PLATELET COUNT 162 10^3/uL (130-400); RED CELL DISTRIBUTION WIDTH 16.7 % (10.0-14.5); WHITE BLOOD COUNT 4.6 10^3/uL (4.3-11.0)
[2019-07-13 13:49] LABS: ALANINE AMINOTRANSFERASE 22 U/L (0-55); ALBUMIN 3.6 GM/DL (3.2-4.5); ALKALINE PHOSPHATASE 116 U/L (40-136); BILIRUBIN,TOTAL 0.2 MG/DL (0.1-1.0); BUN/CREATININE RATIO 7; CALCIUM 8.4 MG/DL (8.5-10.1); CARBON DIOXIDE 26 MMOL/L (21-32); CHLORIDE 108 MMOL/L (98-107); CREATININE SERUM 0.73 MG/DL (0.60-1.30); GFR ESTIMATED > 60; GLUCOSE 122 MG/DL (70-105); MAGNESIUM 2.2 MG/DL (1.6-2.4); POTASSIUM 3.5 MMOL/L (3.6-5.0); SODIUM 141 MMOL/L (135-145); TOTAL PROTEIN 5.5 GM/DL (6.4-8.2)
[~2019-07-17] VITALS: Ht 157.5 cm; Wt 84.8 kg
[~2019-07-17 07:36] MED LIST changes: +ALPR0.254 PO; +CISplatin 70 MG, MANNITOL 25% INJ (CANCER CTR) 12.5 GM, MAGNESIUM SULFATE (CANCER CTR) ... IV SCH; +FOSAPREPITANT DIMEGLUMINE 150 MG in NS (IVPB) CANCER CENTER ONLY 150 ML IV SCH; +NS IV 1000 ML (CANCER CTR) IV SCH; +PALONOSETRON HCL 0.25 MG, DEXAMETHASONE INJECTION 10 MG in NS (IVPB) CANCER CENTER 50 ML IV SCH
== END 2019-08-10 | disposition home or self-care (01) ==
LOC: ONC 07:36
PROVIDERS: ATTEND Internal Medicine Hematology & Oncology
DX: Z51.0 Encounter for antineoplastic radiation therapy (principal); C53.9 Malignant neoplasm of cervix uteri, unspecified; L65.9 Nonscarring hair loss, unspecified; D50.0 Iron deficiency anemia secondary to blood loss (chronic); J44.9 Chronic obstructive pulmonary disease, unspecified
CPT/HCPCS: 36591; 77290; 77300; 77301; 77334; 77336; 77338; 77386; 77470; 80048; 80053; 83615; 83735; 84443; 85025; 96367; 96375; 96413; 99205; 99213; 99214

== ENCOUNTER 2019-09-07 14:26 | Outpatient (CLI) | payer MEDICAID ==
[~2019-09-07] VITALS: Ht 155 cm; Wt 87.5 kg
[~2019-09-07 14:26] MED LIST changes: -CISplatin 70 MG, MANNITOL 25% INJ (CANCER CTR) 12.5 GM, MAGNESIUM SULFATE (CANCER CTR) ... IV SCH; -FOSAPREPITANT DIMEGLUMINE 150 MG in NS (IVPB) CANCER CENTER ONLY 150 ML IV SCH; -NS IV 1000 ML (CANCER CTR) IV SCH; -PALONOSETRON HCL 0.25 MG, DEXAMETHASONE INJECTION 10 MG in NS (IVPB) CANCER CENTER 50 ML IV SCH
[2019-09-07 14:45] VITALS: BP 128/94
[2019-09-07 14:56] LABS: BASOPHILS % (AUTO) 1 % (0-10); EOSINOPHILS # (AUTO) 0.1 10^3/uL (0.0-0.3); EOSINOPHILS % (AUTO) 2 % (0-10); HEMATOCRIT 40 % (35-52); HEMOGLOBIN 13.8 G/DL (11.5-16.0); LYMPHOCYTES % (AUTO) 16 % (12-44); MEAN CORPUSCULAR HEMOGLOBIN 35 PG (25-34); MEAN CORPUSCULAR HGB CONC 35 G/DL (32-36); MEAN CORPUSCULAR VOLUME 100 FL (80-99); MEAN PLATELET VOLUME 10.6 FL (7.4-10.4); MONOCYTES # (AUTO) 0.5 X 10^3 (0.0-1.0); MONOCYTES % (AUTO) 9 % (0-12); NEUTROPHILS # (AUTO) 4.4 X 10^3 (1.8-7.8); NEUTROPHILS % (AUTO) 73 % (42-75); PLATELET COUNT 190 10^3/uL (130-400); RED CELL DISTRIBUTION WIDTH 14.1 % (10.0-14.5); WHITE BLOOD COUNT 6.1 10^3/uL (4.3-11.0)
[2019-09-07 15:17] LABS: ALANINE AMINOTRANSFERASE 44 U/L (0-55); ALBUMIN 3.9 GM/DL (3.2-4.5); ALKALINE PHOSPHATASE 119 U/L (40-136); BILIRUBIN,TOTAL 0.4 MG/DL (0.1-1.0); BUN/CREATININE RATIO 15; CALCIUM 8.9 MG/DL (8.5-10.1); CARBON DIOXIDE 25 MMOL/L (21-32); CHLORIDE 107 MMOL/L (98-107); CREATININE SERUM 0.78 MG/DL (0.60-1.30); GFR ESTIMATED > 60; GLUCOSE 126 MG/DL (70-105); POTASSIUM 3.5 MMOL/L (3.6-5.0); SODIUM 142 MMOL/L (135-145); TOTAL PROTEIN 6.8 GM/DL (6.4-8.2)
== END 2019-09-07 14:45 | disposition home or self-care (01) ==
LOC: SDC 14:26
PROVIDERS: ATTEND Nurse Practitioner Community Health
DX: D50.8 Other iron deficiency anemias (principal); R74.8 Abnormal levels of other serum enzymes
CPT/HCPCS: 36415; 36591; 80053; 85025

== ENCOUNTER → 2019-09-23 | Outpatient (CLI) | payer MEDICAID ==
--- NOTE | 2019-09-23 14:32 | Diagnostic Imaging Report ---
INDICATION: Routine screening. COMPARISON: 08/08/2018. TECHNIQUE: 2D and 3D bilateral screening mammography was performed with CAD. FINDINGS: Both breasts are heterogeneously dense, limiting the sensitivity of mammography. The overall parenchymal pattern is stable. There is a slightly prominent density in the outer aspect of the left breast on the CC view at anterior depth. Additional views are recommended. No corresponding density on the MLO view is seen. The right breast is unremarkable. There are benign calcifications. The axillae are unremarkable. IMPRESSION: Left breast density. This may represent superimposition of fibroglandular tissue. Even so, additional views are recommended including spot compression CC, rolled CC, and 90 degree lateral views. ACR BI-RADS Category 0: Incomplete. (Needs additional imaging evaluation). Result letter will be mailed to the patient. Note: At least 10% of breast cancer is not imaged by mammography. Dictated by: Dictated on workstation # [id number]
== END ==
LOC: RAD 13:28
PROVIDERS: ATTEND Nurse Practitioner Community Health
DX: Z12.31 Encounter for screening mammogram for malignant neoplasm of breast (principal); R92.8 Other abnormal and inconclusive findings on diagnostic imaging of breast
CPT/HCPCS: 77063; 77067

== ENCOUNTER → 2019-10-08 | Outpatient (CLI) | payer MEDICAID ==
--- NOTE | 2019-10-08 13:42 | Diagnostic Imaging Report ---
INDICATION: Left breast density. Patient presents for additional views. COMPARISON: Correlation is made with the recent screening study from 09/23/2019. TECHNIQUE: Unilateral left 2D and 3D diagnostic mammography was performed with CAD. This includes spot compression CC, rolled CC, and conventional 90 degree lateral views. FINDINGS: The additional views fail to demonstrate a discrete mass. The area of density noted on the recent screening study may represent superimposed tissue. IMPRESSION: Additional views fail to demonstrate a discrete mass. Even so, sonographic interrogation of the outer left breast approximately 5 cm from the nipple is recommended and will be performed today. ACR BI-RADS Category 0: Incomplete. (Needs additional imaging evaluation). Result letter will be mailed to the patient. Note: At least 10% of breast cancer is not imaged by mammography. Dictated by: Dictated on workstation # [id number]
--- NOTE | 2019-10-08 14:13 | Diagnostic Imaging Report ---
INDICATION: Left breast density. Correlation is made with diagnostic mammogram earlier today as well as screening mammogram from 09/23/2019. Sonographic interrogation of the outer left breast was performed. No sonographic abnormality is detected. No solid or cystic mass is detected. IMPRESSION: BI-RADS Category 1 No sonographic abnormality is detected. The patient may return to routine annual screening mammography. ACR BI-RADS Category 1: Negative. Result letter will be mailed to the patient. Note: At least 10% of breast cancer is not imaged by mammography. Dictated by: Dictated on workstation # [id number]
== END ==
LOC: RAD 12:49
PROVIDERS: ATTEND Nurse Practitioner Community Health
DX: R92.2 Inconclusive mammogram (principal)
CPT/HCPCS: 76642; 77065; G0279

== ENCOUNTER 2019-11-04 14:02 | Outpatient (RCR) | payer MEDICAID ==
[2019-08-12 13:47] LABS: BASOPHILS % (AUTO) 1 % (0-10); EOSINOPHILS % (AUTO) 1 % (0-10); HEMATOCRIT 40 % (35-52); HEMOGLOBIN 13.7 G/DL (11.5-16.0); LYMPHOCYTES # (AUTO) 0.7 X 10^3 (1.0-4.0); LYMPHOCYTES % (AUTO) 19 % (12-44); MEAN CORPUSCULAR HEMOGLOBIN 35 PG (25-34); MEAN CORPUSCULAR HGB CONC 35 G/DL (32-36); MEAN CORPUSCULAR VOLUME 100 FL (80-99); MEAN PLATELET VOLUME 9.8 FL (7.4-10.4); MONOCYTES # (AUTO) 0.6 X 10^3 (0.0-1.0); MONOCYTES % (AUTO) 15 % (0-12); NEUTROPHILS # (AUTO) 2.5 X 10^3 (1.8-7.8); NEUTROPHILS % (AUTO) 64 % (42-75); PLATELET COUNT 222 10^3/uL (130-400); WHITE BLOOD COUNT 3.8 10^3/uL (4.3-11.0)
[2019-08-12 14:07] LABS: ALANINE AMINOTRANSFERASE 23 U/L (0-55); ALKALINE PHOSPHATASE 110 U/L (40-136); BILIRUBIN,TOTAL 0.4 MG/DL (0.1-1.0); BUN/CREATININE RATIO 8; CALCIUM 9.3 MG/DL (8.5-10.1); CARBON DIOXIDE 27 MMOL/L (21-32); CHLORIDE 107 MMOL/L (98-107); CREATININE SERUM 0.72 MG/DL (0.60-1.30); GFR ESTIMATED > 60; GLUCOSE 106 MG/DL (70-105); POTASSIUM 3.7 MMOL/L (3.6-5.0); SODIUM 142 MMOL/L (135-145); TOTAL PROTEIN 6.9 GM/DL (6.4-8.2)
[2019-11-05 07:02] LABS: ALANINE AMINOTRANSFERASE 62 U/L (0-55); ALKALINE PHOSPHATASE 127 U/L (40-136); BILIRUBIN,TOTAL 0.3 MG/DL (0.1-1.0); BUN/CREATININE RATIO 15; CALCIUM 9.4 MG/DL (8.5-10.1); CARBON DIOXIDE 24 MMOL/L (21-32); CHLORIDE 108 MMOL/L (98-107); CREATININE SERUM 0.67 MG/DL (0.60-1.30); GFR ESTIMATED > 60; GLUCOSE 116 MG/DL (70-105); POTASSIUM 3.7 MMOL/L (3.6-5.0); SODIUM 140 MMOL/L (135-145)
[2019-11-05 07:06] LABS: HEMATOCRIT 41 % (35-52); HEMOGLOBIN 14.4 G/DL (11.5-16.0); MEAN CORPUSCULAR HEMOGLOBIN 35 PG (25-34); MEAN CORPUSCULAR HGB CONC 35 G/DL (32-36); MEAN CORPUSCULAR VOLUME 98 FL (80-99); PLATELET COUNT 194 10^3/uL (130-400); RED CELL DISTRIBUTION WIDTH 11.8 % (10.0-14.5); WHITE BLOOD COUNT 4.8 10^3/uL (4.3-11.0)
[2019-11-05 07:07] LABS: BASOPHILS % (AUTO) 1 % (0-10); EOSINOPHILS # (AUTO) 0.1 10^3/uL (0.0-0.3); EOSINOPHILS % (AUTO) 3 % (0-10); LYMPHOCYTES # (AUTO) 0.9 X 10^3 (1.0-4.0); LYMPHOCYTES % (AUTO) 18 % (12-44); MEAN PLATELET VOLUME 9.8 FL (7.4-10.4); MONOCYTES # (AUTO) 0.4 X 10^3 (0.0-1.0); MONOCYTES % (AUTO) 8 % (0-12); NEUTROPHILS # (AUTO) 3.4 X 10^3 (1.8-7.8); NEUTROPHILS % (AUTO) 71 % (42-75)
== END 2019-11-10 | disposition home or self-care (01) ==
LOC: ONC 14:02
PROVIDERS: ATTEND Internal Medicine Hematology & Oncology
DX: C53.9 Malignant neoplasm of cervix uteri, unspecified (principal); L65.9 Nonscarring hair loss, unspecified; D50.0 Iron deficiency anemia secondary to blood loss (chronic); J44.9 Chronic obstructive pulmonary disease, unspecified
CPT/HCPCS: 80053; 85025; G0463; 36591; 99213

== ENCOUNTER 2020-02-29 14:25 | Outpatient (RCR) | payer MEDICAID ==
[2020-02-03 12:13] LABS: BASOPHILS # (AUTO) 0.1 10^3/uL (0.0-0.1); BASOPHILS % (AUTO) 1 % (0-10); EOSINOPHILS # (AUTO) 0.1 10^3/uL (0.0-0.3); EOSINOPHILS % (AUTO) 2 % (0-10); HEMATOCRIT 43 % (35-52); HEMOGLOBIN 14.8 g/dL (11.5-16.0); LYMPHOCYTES # (AUTO) 1.6 10^3/uL (1.0-4.0); LYMPHOCYTES % (AUTO) 23 % (12-44); MEAN CORPUSCULAR HEMOGLOBIN 34 pg (25-34); MEAN CORPUSCULAR HGB CONC 34 g/dL (32-36); MEAN CORPUSCULAR VOLUME 98 fL (80-99); MEAN PLATELET VOLUME 9.6 fL (9.0-12.2); MONOCYTES # (AUTO) 0.4 10^3/uL (0.0-1.0); MONOCYTES % (AUTO) 6 % (0-12); NEUTROPHILS # (AUTO) 4.7 10^3/uL (1.8-7.8); NEUTROPHILS % (AUTO) 68 % (42-75); PLATELET COUNT 217 10^3/uL (130-400)
[2020-02-03 12:29] LABS: ALANINE AMINOTRANSFERASE 57 U/L (0-55); ALBUMIN 4.3 GM/DL (3.2-4.5); ALKALINE PHOSPHATASE 191 U/L (40-136); BILIRUBIN,TOTAL 0.6 MG/DL (0.1-1.0); BUN/CREATININE RATIO 14; CALCIUM 9.2 MG/DL (8.5-10.1); CARBON DIOXIDE 21 MMOL/L (21-32); CHLORIDE 105 MMOL/L (98-107); CREATININE SERUM 0.78 MG/DL (0.60-1.30); GFR ESTIMATED > 60; GLUCOSE 92 MG/DL (70-105); POTASSIUM 3.7 MMOL/L (3.6-5.0); SODIUM 140 MMOL/L (135-145); TOTAL PROTEIN 7.5 GM/DL (6.4-8.2)
[2020-02-29 15:48] LABS: BASOPHILS % (AUTO) 1 % (0-10); EOSINOPHILS # (AUTO) 0.1 10^3/uL (0.0-0.3); EOSINOPHILS % (AUTO) 2 % (0-10); HEMATOCRIT 42 % (35-52); HEMOGLOBIN 14.4 g/dL (11.5-16.0); LYMPHOCYTES # (AUTO) 1.7 10^3/uL (1.0-4.0); LYMPHOCYTES % (AUTO) 29 % (12-44); MEAN CORPUSCULAR HEMOGLOBIN 34 pg (25-34); MEAN CORPUSCULAR HGB CONC 34 g/dL (32-36); MEAN CORPUSCULAR VOLUME 100 fL (80-99); MEAN PLATELET VOLUME 9.7 fL (9.0-12.2); MONOCYTES # (AUTO) 0.5 10^3/uL (0.0-1.0); MONOCYTES % (AUTO) 9 % (0-12); NEUTROPHILS # (AUTO) 3.6 10^3/uL (1.8-7.8); NEUTROPHILS % (AUTO) 60 % (42-75); PLATELET COUNT 202 10^3/uL (130-400); WHITE BLOOD COUNT 5.9 10^3/uL (4.3-11.0)
[2020-02-29 16:03] LABS: ALANINE AMINOTRANSFERASE 51 U/L (0-55); ALBUMIN 4.2 GM/DL (3.2-4.5); ALKALINE PHOSPHATASE 163 U/L (40-136); BILIRUBIN,TOTAL 0.3 MG/DL (0.1-1.0); BUN/CREATININE RATIO 15; CALCIUM 9.3 MG/DL (8.5-10.1); CARBON DIOXIDE 25 MMOL/L (21-32); CHLORIDE 104 MMOL/L (98-107); CREATININE SERUM 0.71 MG/DL (0.60-1.30); GFR ESTIMATED > 60; GLUCOSE 95 MG/DL (70-105); SODIUM 138 MMOL/L (135-145); TOTAL PROTEIN 7.3 GM/DL (6.4-8.2)
== END 2020-05-03 | disposition home or self-care (01) ==
LOC: ONC 14:25
PROVIDERS: ATTEND Internal Medicine Hematology & Oncology
DX: C53.9 Malignant neoplasm of cervix uteri, unspecified (principal); L65.9 Nonscarring hair loss, unspecified; D50.0 Iron deficiency anemia secondary to blood loss (chronic); J44.9 Chronic obstructive pulmonary disease, unspecified
CPT/HCPCS: 36591; 80053; 82728; 85025

== ENCOUNTER → 2020-02-29 | Outpatient (CLI) | payer MEDICAID ==
[~2020-02-29] MED LIST changes: +ALPR.25T PO; -ALPR0.254 PO
== END ==
LOC: LAB 14:17
PROVIDERS: ATTEND Physician Assistant
DX: Z13.220 Encounter for screening for lipoid disorders (principal); M25.50 Pain in unspecified joint; R20.2 Paresthesia of skin

== ENCOUNTER 2020-05-27 09:13 | Outpatient (RCR) | payer MEDICAID ==
[2020-05-23 14:33] LABS: BASOPHILS # (AUTO) 0.1 10^3/uL (0.0-0.1); BASOPHILS % (AUTO) 1 % (0-10); EOSINOPHILS # (AUTO) 0.1 10^3/uL (0.0-0.3); EOSINOPHILS % (AUTO) 1 % (0-10); HEMATOCRIT 43 % (35-52); HEMOGLOBIN 14.7 g/dL (11.5-16.0); LYMPHOCYTES # (AUTO) 1.9 10^3/uL (1.0-4.0); LYMPHOCYTES % (AUTO) 22 % (12-44); MEAN CORPUSCULAR HEMOGLOBIN 33 pg (25-34); MEAN CORPUSCULAR HGB CONC 34 g/dL (32-36); MEAN CORPUSCULAR VOLUME 97 fL (80-99); MEAN PLATELET VOLUME 9.6 fL (9.0-12.2); MONOCYTES # (AUTO) 0.5 10^3/uL (0.0-1.0); MONOCYTES % (AUTO) 6 % (0-12); NEUTROPHILS # (AUTO) 5.8 10^3/uL (1.8-7.8); NEUTROPHILS % (AUTO) 69 % (42-75); PLATELET COUNT 205 10^3/uL (130-400); WHITE BLOOD COUNT 8.3 10^3/uL (4.3-11.0)
[2020-05-23 14:54] LABS: ALANINE AMINOTRANSFERASE 52 U/L (0-55); ALBUMIN 4.2 GM/DL (3.2-4.5); ALKALINE PHOSPHATASE 201 U/L (40-136); BILIRUBIN,TOTAL 0.4 MG/DL (0.1-1.0); BUN/CREATININE RATIO 9; CALCIUM 9.4 MG/DL (8.5-10.1); CARBON DIOXIDE 24 MMOL/L (21-32); CHLORIDE 104 MMOL/L (98-107); CREATININE SERUM 0.76 MG/DL (0.60-1.30); GFR ESTIMATED > 60; GLUCOSE 98 MG/DL (70-105); POTASSIUM 3.9 MMOL/L (3.6-5.0); SODIUM 139 MMOL/L (135-145); TOTAL PROTEIN 7.4 GM/DL (6.4-8.2)
[2020-05-27 09:26] LABS: BILIRUBIN,URINE NEGATIVE (NEGATIVE); CLARITY,URINE CLEAR; COLOR,URINE YELLOW; GLUCOSE, URINE (UA) NEGATIVE (NEGATIVE); KETONES,URINE NEGATIVE (NEGATIVE); LEUKOCYTE ESTERASE ,URINE NEGATIVE (NEGATIVE); NITRITE,URINE NEGATIVE (NEGATIVE); PROTEIN,URINE NEGATIVE (NEGATIVE)
[2020-05-27 09:45] LABS: BACTERIA,URINE TRACE /HPF; WBC,URINE 0-2 /HPF
== END 2020-08-21 | disposition home or self-care (01) ==
LOC: ONC 09:13
PROVIDERS: ATTEND Internal Medicine Hematology & Oncology
DX: C53.8 Malignant neoplasm of overlapping sites of cervix uteri (principal); G62.89 Other specified polyneuropathies; N95.1 Menopausal and female climacteric states; E61.1 Iron deficiency; R35.0 Frequency of micturition; F41.9 Anxiety disorder, unspecified; F32.9 Major depressive disorder, single episode, unspecified; N94.5 Secondary dysmenorrhea; Z72.0 Tobacco use; Z92.21 Personal history of antineoplastic chemotherapy; Z92.3 Personal history of irradiation
CPT/HCPCS: 80053; 85025; G0463; 36591; 81000

== ENCOUNTER → 2020-06-22 | Outpatient (CLI) | payer MEDICAID ==
[2020-06-22 12:12] LABS: ALANINE AMINOTRANSFERASE 42 U/L (0-55); ALBUMIN 4.1 GM/DL (3.2-4.5); ALKALINE PHOSPHATASE 161 U/L (40-136); BILIRUBIN,TOTAL 0.4 MG/DL (0.1-1.0); BUN/CREATININE RATIO 13; CALCIUM 9.3 MG/DL (8.5-10.1); CARBON DIOXIDE 24 MMOL/L (21-32); CHLORIDE 104 MMOL/L (98-107); CHOLESTEROL 248 MG/DL (< 200); GFR ESTIMATED > 60; GLUCOSE 87 MG/DL (70-105); HDL CHOLESTEROL 63 MG/DL (40-60); POTASSIUM 3.9 MMOL/L (3.6-5.0); SODIUM 140 MMOL/L (135-145); TOTAL PROTEIN 7.2 GM/DL (6.4-8.2); TRIGLYCERIDES 200 MG/DL (<150); VLDL CHOLESTEROL 40 MG/DL (5-40)
[2020-06-22 12:33] LABS: FREE T4 (FREE THYROXINE) 0.86 NG/DL (0.70-1.48)
== END ==
LOC: LAB 11:17
PROVIDERS: ATTEND Physician Assistant
DX: R20.2 Paresthesia of skin (principal)
CPT/HCPCS: 36415; 80053; 80061; 84439; 84443; 85652; 86038; 86039; 86431

== ENCOUNTER 2020-08-23 13:11 | Outpatient (RCR) | payer MEDICAID ==
[2020-08-23 13:31] LABS: BASOPHILS # (AUTO) 0.1 10^3/uL (0.0-0.1); BASOPHILS % (AUTO) 1 % (0-10); EOSINOPHILS # (AUTO) 0.1 10^3/uL (0.0-0.3); EOSINOPHILS % (AUTO) 1 % (0-10); HEMATOCRIT 45 % (35-52); HEMOGLOBIN 15.4 g/dL (11.5-16.0); LYMPHOCYTES # (AUTO) 2.1 10^3/uL (1.0-4.0); LYMPHOCYTES % (AUTO) 28 % (12-44); MEAN CORPUSCULAR HEMOGLOBIN 33 pg (25-34); MEAN CORPUSCULAR HGB CONC 34 g/dL (32-36); MEAN CORPUSCULAR VOLUME 96 fL (80-99); MEAN PLATELET VOLUME 9.8 fL (9.0-12.2); MONOCYTES # (AUTO) 0.5 10^3/uL (0.0-1.0); MONOCYTES % (AUTO) 6 % (0-12); NEUTROPHILS # (AUTO) 4.9 10^3/uL (1.8-7.8); NEUTROPHILS % (AUTO) 64 % (42-75); PLATELET COUNT 211 10^3/uL (130-400); WHITE BLOOD COUNT 7.7 10^3/uL (4.3-11.0)
[2020-08-23 13:49] LABS: ALANINE AMINOTRANSFERASE 48 U/L (0-55); ALBUMIN 4.2 GM/DL (3.2-4.5); ALKALINE PHOSPHATASE 196 U/L (40-136); BILIRUBIN,TOTAL 0.6 MG/DL (0.1-1.0); BUN/CREATININE RATIO 12; CALCIUM 9.6 MG/DL (8.5-10.1); CARBON DIOXIDE 25 MMOL/L (21-32); CHLORIDE 105 MMOL/L (98-107); CREATININE SERUM 0.83 MG/DL (0.60-1.30); GFR ESTIMATED > 60; GLUCOSE 109 MG/DL (70-105); POTASSIUM 3.5 MMOL/L (3.6-5.0); SODIUM 139 MMOL/L (135-145); TOTAL PROTEIN 7.3 GM/DL (6.4-8.2)
== END 2020-11-21 | disposition home or self-care (01) ==
LOC: ONC 13:11
PROVIDERS: ATTEND Internal Medicine Hematology & Oncology
DX: Z45.2 Encounter for adjustment and management of vascular access device (principal); C53.8 Malignant neoplasm of overlapping sites of cervix uteri; G62.89 Other specified polyneuropathies; N95.1 Menopausal and female climacteric states; E61.1 Iron deficiency; F41.8 Other specified anxiety disorders; N94.5 Secondary dysmenorrhea; Z72.0 Tobacco use; Z92.21 Personal history of antineoplastic chemotherapy; Z92.3 Personal history of irradiation
CPT/HCPCS: 80053; 85025; G0463; 36591

== ENCOUNTER → 2020-11-02 | Outpatient (CLI) | payer MEDICAID ==
--- NOTE | 2020-11-03 10:23 | Diagnostic Imaging Report ---
Indication: Routine screening. Comparison is made with prior mammogram from 09/23/2019 and 08/08/2018. 2-D and 3-D bilateral screening mammography was performed with CAD. Scattered fibroglandular densities are identified bilaterally. The parenchymal pattern is stable. No mass or malignant-appearing microcalcifications are seen. Axillae are unremarkable. IMPRESSION: BI-RADS Category 1 No mammographic features suspicious for malignancy are identified. ACR BI-RADS Category 1: Negative. Result letter will be mailed to the patient. Note: At least 10% of breast cancer is not imaged by mammography. Dictated by: Dictated on workstation # [id number]
== END ==
LOC: RAD 12:47
PROVIDERS: ATTEND Physician Assistant
DX: Z12.31 Encounter for screening mammogram for malignant neoplasm of breast (principal)
CPT/HCPCS: 77063; 77067

== ENCOUNTER 2021-01-26 08:03 | Outpatient (RCR) | payer MEDICAID ==
[2021-01-26 08:26] LABS: BASOPHILS # (AUTO) 0.1 10^3/uL (0.0-0.1); BASOPHILS % (AUTO) 1 % (0-10); EOSINOPHILS # (AUTO) 0.1 10^3/uL (0.0-0.3); EOSINOPHILS % (AUTO) 2 % (0-10); HEMATOCRIT 41 % (35-52); HEMOGLOBIN 14.4 g/dL (11.5-16.0); LYMPHOCYTES # (AUTO) 1.6 10^3/uL (1.0-4.0); LYMPHOCYTES % (AUTO) 23 % (12-44); MEAN CORPUSCULAR HEMOGLOBIN 34 pg (25-34); MEAN CORPUSCULAR HGB CONC 35 g/dL (32-36); MEAN CORPUSCULAR VOLUME 97 fL (80-99); MEAN PLATELET VOLUME 9.7 fL (9.0-12.2); MONOCYTES # (AUTO) 0.5 10^3/uL (0.0-1.0); MONOCYTES % (AUTO) 7 % (0-12); NEUTROPHILS # (AUTO) 4.6 10^3/uL (1.8-7.8); NEUTROPHILS % (AUTO) 68 % (42-75); PLATELET COUNT 212 10^3/uL (130-400); WHITE BLOOD COUNT 6.8 10^3/uL (4.3-11.0)
[2021-01-26 08:49] LABS: ALBUMIN 4.1 GM/DL (3.2-4.5)
[2021-01-26 08:50] LABS: BILIRUBIN,TOTAL 0.5 MG/DL (0.1-1.0); CALCIUM 9.5 MG/DL (8.5-10.1); CREATININE SERUM 0.67 MG/DL (0.60-1.30); POTASSIUM 3.8 MMOL/L (3.6-5.0); TOTAL PROTEIN 7.1 GM/DL (6.4-8.2)
== END 2021-03-17 | disposition home or self-care (01) ==
LOC: ONC 08:03
PROVIDERS: ATTEND Internal Medicine Hematology & Oncology
DX: Z45.2 Encounter for adjustment and management of vascular access device (principal); C53.8 Malignant neoplasm of overlapping sites of cervix uteri; G62.89 Other specified polyneuropathies; N95.1 Menopausal and female climacteric states; E61.1 Iron deficiency; F41.8 Other specified anxiety disorders; N94.5 Secondary dysmenorrhea; Z72.0 Tobacco use; Z92.21 Personal history of antineoplastic chemotherapy; Z92.3 Personal history of irradiation
CPT/HCPCS: 80053; 85025; G0463; 36591

== ENCOUNTER → 2021-10-11 | Outpatient (CLI) | payer MEDICAID ==
[~2021-10-11] MED LIST changes: +IOHEXOL 240 MGI/ML 50 ML (OMNIPAQUE) VIAL IV ONE
--- NOTE | 2021-10-11 15:30 | Diagnostic Imaging Report ---
EXAMINATION: Fluoroscopy injection. INDICATION: Check patency of Port-A-Cath. FINDINGS: The preliminary film shows that there is a left-sided Port-A-Cath in place. Approximately 10 cc of Isovue 240 was introduced to the Port-A-Cath. Initially, there was slow passage of the contrast through the catheter. The proximal most portion of the catheter does have somewhat of a beaded appearance and this may be secondary to fibrosis; however, gradually contrast was seen extending through the tip of the catheter. The patient tolerated the procedure well and was dismissed in good condition. 0.8 minutes of fluoroscopy time was utilized. IMPRESSION: 1. The left-sided Port-A-Cath is patent. 2. These results were called to Dr. Rowell's office. Dictated by: Dictated on workstation # [id number]
== END ==
LOC: RAD 10:50
PROVIDERS: ATTEND Surgery
DX: T82.9XXA Unspecified complication of cardiac and vascular prosthetic device, implant and graft, initial encounter (principal)
CPT/HCPCS: 36598

== ENCOUNTER → 2021-11-07 | Outpatient (CLI) | payer MEDICAID ==
[~2021-11-07] MED LIST changes: -IOHEXOL 240 MGI/ML 50 ML (OMNIPAQUE) VIAL IV ONE
--- NOTE | 2021-11-07 13:02 | Diagnostic Imaging Report ---
INDICATION: Routine screening. COMPARISON: 11/02/2020 and 09/23/2019. TECHNIQUE: 2D and 3D bilateral screening mammography was performed with CAD. FINDINGS: Scattered fibroglandular densities are identified bilaterally. There is an ovoid density in the lateral right breast at posterior depth. This in the upper portion of the breast on the MLO view. Additional views are recommended. A density noted in the superior and outer left breast at anterior depth does appear to be slightly more prominent on today's study. Additional views of this area are recommended as well. No malignant-appearing microcalcifications are seen. The axillae are unremarkable. IMPRESSION: Bilateral breast densities. Additional views are recommended for further evaluation. ACR BI-RADS Category 0: Incomplete. (Needs additional imaging evaluation). Result letter will be mailed to the patient. Note: At least 10% of breast cancer is not imaged by mammography. Dictated by: Dictated on workstation # [id number]
== END ==
LOC: RAD 10:45
PROVIDERS: ATTEND Pediatrics
DX: Z12.31 Encounter for screening mammogram for malignant neoplasm of breast (principal)
CPT/HCPCS: 77063; 77067

== ENCOUNTER → 2021-11-15 | Outpatient (CLI) | payer MEDICAID ==
--- NOTE | 2021-11-15 18:34 | Diagnostic Imaging Report ---
EXAMINATION: Bilateral breast ultrasound, limited. INDICATION: Abnormal screening mammogram. FINDINGS: The screening mammogram performed on 11/07/2021 noted an ovoid density in the lateral right breast at posterior depth. This finding could not be identified with certainty on the diagnostic mammogram performed prior to this exam. The ultrasound examination of the upper outer quadrant in the right breast failed to show any discrete solid or cystic mass. The screening mammogram also suggested an area of increased density in the upper-outer quadrant of the left breast. This finding seemed to persist on the diagnostic mammogram performed prior to this study. However there is no discrete solid or cystic mass in this area either. The previous left breast ultrasound exam of 10/08/2019 also failed to show any discrete abnormality in this region. The area of increased density seen on the screening mammogram may be secondary to fibroglandular tissue alone. However the patient does state that she feels a lump in this region. If there is indeed a palpable abnormality in this area, then biopsy would be recommended. If further imaging is desired, then MRI of the breast should be obtained. If there is no intervention at this time, and the MRI exam is not performed, then a short-term (6 month) follow-up mammogram and ultrasound exam of the left breast should be obtained. A similar follow-up of the right breast would also be recommended. IMPRESSION: 1. There is no evidence for malignancy. Additional considerations and recommendations as above. 2. These results will be discussed with Jamey Kelly APRN. ACR BI-RADS Category 3: Probably benign findings. Result letter will be mailed to the patient. Note: At least 10% of breast cancer is not imaged by mammography. Dictated on workstation # [id number]
--- NOTE | 2021-11-15 18:40 | Diagnostic Imaging Report ---
EXAMINATION: 3D bilateral diagnostic mammogram with CAD. INDICATION: Abnormal mammogram. The current study was also evaluated with a Computer Aided Detection (CAD) system. COMPARISON: This study was compared to the prior exams of 11/02/2020, 09/23/2019, 08/08/2018 and 08/08/2018. FINDINGS: At this time the patient does complain of a lump in the upper outer quadrant of the left breast. The screening mammogram performed on 11/07/2021 noted a density in the superior outer left breast. This finding did seem more conspicuous than on the prior exam of 11/02/2020 but quite similar to the previous study of 09/23/2019. The compression views of this area show that there is still some residual density in this region. I would recommend that ultrasound be performed for further study. This recent screening mammogram also suggested a ovoid density in the lateral aspect of the right breast at posterior depth. That finding cannot be identified on the compression views of this area. I would recommend that ultrasound of the right breast be obtained as well. IMPRESSION: There still seems to be some residual density in the area of concern in the upper-outer quadrant of the left breast. The ovoid density in the right breast could not be identified. Ultrasound of both breasts is pending for further study. ACR BI-RADS Category 0: Incomplete. (Needs additional imaging evaluation). Result letter will be mailed to the patient. Note: At least 10% of breast cancer is not imaged by mammography. Dictated by: Dictated on workstation # [id number]
== END ==
LOC: RAD 11:20
PROVIDERS: ATTEND Pediatrics
DX: R92.8 Other abnormal and inconclusive findings on diagnostic imaging of breast (principal)
CPT/HCPCS: 76642; 77066; G0279; 77062

== ENCOUNTER → 2022-06-13 | Outpatient (CLI) | payer OTHER ==
--- NOTE | 2022-06-13 12:57 | Diagnostic Imaging Report ---
INDICATION: Weakness, pain. EXAMINATION: Left knee, 06/13/2022. FINDINGS: Two views of the knee. There is no evidence for an acute fracture or dislocation. The joint spaces are well maintained. There is no significant soft tissue swelling. IMPRESSION: No acute process. Dictated by: Dictated on workstation # [id number]
--- NOTE | 2022-06-13 17:08 | Diagnostic Imaging Report ---
INDICATION: Body weakness on left side, left knee pain, fatigue. TECHNIQUE: AP, Lateral and Spot imaging of the lumbar spine CORRELATION STUDY: None FINDINGS: Mild straightening of normal lumbar lordosis. Alignment otherwise anatomic. Lumbar vertebral bodies demonstrate mild anterior wedging at L4. Marked disc space narrowing and endplate sclerosis and vacuum disc phenomena L5-S1 level suspected foraminal and potentially canal narrowing at this level. Remaining disc spaces are fairly well maintained. SI joints and minimal sclerosis. IMPRESSION: No radiographic evidence for acute bony abnormality of the lumbar spine. Degenerative changes with marked disc space narrowing L5-S1 level. Dictated by: Dictated on workstation # [id number]
== END ==
LOC: RAD 09:08
PROVIDERS: ATTEND Family Medicine
DX: Z02.71 Encounter for disability determination (principal); M47.817 Spondylosis without myelopathy or radiculopathy, lumbosacral region; M48.07 Spinal stenosis, lumbosacral region; M25.562 Pain in left knee; R53.1 Weakness
CPT/HCPCS: 72100; 73560

== ENCOUNTER 2022-08-31 05:45 | Emergency (ER) | payer MEDICAID ==
[~2022-08-31] VITALS: Ht 157.5 cm; Wt 74.0 kg
[2022-08-31] MEDS ORDERED: OXYB10TA29 (06:06)
[2022-08-31] MEDS ORDERED: FERR324T (06:06)
[2022-08-31] MEDS ORDERED: PREG150C46 (06:06)
[2022-08-31] MEDS ORDERED: HYDR-3817 (06:06)
[2022-08-31] MEDS ORDERED: DESV50TA18 (06:06)
--- NOTE | 2022-08-31 06:21 | ED Abdominal Pain ---
General Chief Complaint: Abdominal/GI Problems Stated Complaint: LEFT SIDE PAIN,SOB Nursing Triage Note: C/O LEFT UPPER ABDOMINAL PAIN X4-5 DAYS. SEEN BY PCP 08/29/22 FOR SAME. GIVEN SHOT OF ROCEPHIN. REPORTS CONTINUED PAIN RADIATING TO LEFT FLANK. Source of Information: Patient Exam Limitations: No Limitations History of Present Illness Date Seen by Provider: Aug 31, 2022 Time Seen by Provider: 06:20 Initial Comments Patient is a 47-year-old female who presents to the emergency room with 1 week of left flank pain and mid abdominal pain. Patient states that nothing makes the pain any better or any worse. She is nauseated but has not vomited. She took some laxatives and a sleeping pill last night trying to be able to sleep and thinking that a bowel movement may help. She was seen by her primary care physician, Dr. Kelly 2 days ago and given a shot of Rocephin for some bacteria in her urine at the clinic. She actually denies dysuria, urgency or frequency. No abnormal vaginal discharge. No noted blood in her urine. She has never had a kidney stone. She states she has never had any abdominal surgeries. She has also taken 800 mg ibuprofen without relief as well as hydrocodone which she is prescribed by her primary care doctor. She tells me she has a history of cervical cancer 2 years ago without any follow-up this year. She denies any other symptoms other than the abdominal pain at this time. She rates her pain at a "9". Timing/Duration: 1 Week Severity/Quality: Severe, Sharp Location: Flank (left) Radiation: Other (around abdomen) Associated Symptoms: Nausea/Vomiting (nausea without vomiting) Allergies and Home Medications Allergies Coded Allergies: aspirin (Verified Allergy, Severe, VOMITTING,FEVER,SWELLING, 06/02/19) Patient Home Medication List Home Medication List Reviewed: Yes Desvenlafaxine Succinate (Desvenlafaxine Succinate ER) 50 Mg Tab.er.24h, (Reported) Entered as Reported by: IRA IGLESIAS on 08/31/22605 Last Action: New Order Ferrous Gluconate (Ferrous Gluconate) 324 Mg (38 Mg Iron) Tablet, (Reported) Entered as Reported by: IRA IGLESIAS on 08/31/22605 Last Action: New Order Hydrocodone/Acetaminophen (Hydrocodone-Acetamin 7.5-325) 7.5 Mg-325 Mg Tablet, (Reported) Entered as Reported by: IRA IGLESIAS on 08/31/22605 Last Action: New Order Ibuprofen (Ibu) 600 Mg Tablet, 600 MG PO Q6HR Prescribed by: YFN QUEZADA on 03/10/19 1324 Oxybutynin Chloride (Oxybutynin Chloride ER) 10 Mg Tab.er.24, (Reported) Entered as Reported by: IRA IGLESIAS on 08/31/22605 Last Action: New Order Pregabalin (Pregabalin) 150 Mg Capsule, (Reported) Entered as Reported by: IRA IGLESIAS on 08/31/22605 Last Action: New Order Discontinued Medications ALPRAZolam (Xanax Tablet) 0.25 Mg Tablet, 0.25 MG PO TID PRN for ANXIETY Discontinued Reason: No Longer Taking Prescribed by: SANA HUNG on 06/17/19 1004 Last Action: Discontinued Hydrocodone Bit/Acetaminophen (Lortab 7.5-325 Mg/15 Ml Udc) 15 Ml Solution, 15 ML PO Q4H Discontinued Reason: No Longer Taking Prescribed by: PORFIRIO PEMBERTON on 06/03/19 1100 Last Action: Discontinued Paroxetine HCl (Paroxetine HCl) 40 Mg Tablet, 40 MG PO DAILY, (Reported) Discontinued Reason: No Longer Taking Entered as Reported by: SHERIE DOWD on 02/17/19 0957 Last Action: Discontinued Venlafaxine HCl (Venlafaxine HCl) 37.5 Mg Tab, 37.5 MG PO DAILY, (Reported) Discontinued Reason: No Longer Taking Entered as Reported by: POP ALVAREZ on 06/02/19 1257 Last Action: Discontinued Review of Systems Review of Systems Constitutional: see HPI EENTM: No Symptoms Reported Respiratory: No Symptoms Reported Gastrointestinal: Abdominal Pain, Nausea Genitourinary: No Symptoms Reported Musculoskeletal: no symptoms reported Skin: no symptoms reported All Other Systems Reviewed Negative Unless Noted: Yes Past Raxmkzu-Yuezuy-Nypvlg Hx Patient Social History Tobacco Use?: Yes Substance use?: No Alcohol Use?: No Pt feels they are or have been: No Immunizations Up To Date First/Initial COVID19 Vaccinat: NA Seasonal Allergies Seasonal Allergies: Yes Past Medical History Surgery/Hospitalization HX: UTERINE ABLATION, , CERVICAL CA, HTN, COPD, NEUROPATHY, ARTHRITIS Surgeries: Yes (C/S X2) Respiratory: Yes (ONSET OF COPD) Cardiac: No Neurological: No Sexually Transmitted Disease: No HIV/AIDS: No Genitourinary: No Gastrointestinal: No Musculoskeletal: Yes Chronic Back Pain Endocrine: No HEENT: No (GLASSES/CONTACTS) Loss of Vision: Denies Hearing Impairment: Denies Cancer: Yes Cervical Did You Recieve Any Treatments: Yes What Type of Treatment Did You: Chemotherapy, Surgical Intervention Psychosocial: Yes Anxiety, Depression Integumentary: No Blood Disorders: Yes (ANEMIA) Adverse Reaction/Blood Tranf: No (HAS HAD BLOOD WITH NO REACTION) Family Medical History Cardiovascular disease 19 FATHER Diabetes mellitus 19 FATHER Hypertension 19 FATHER Myocardial infarction 19 FATHER Physical Exam Vital Signs Vital Signs - First Documented 08/31/22 05:55 Temp 36.5 Pulse 88 Resp 16 B/P (MAP) 138/103 (115) Pulse Ox 98 O2 Delivery Room Air Capillary Refill : Less Than 3 Seconds Height/Weight/BMI Height: '" Weight: lbs. oz. kg; 29.00 BMI Method: General Appearance: WD/WN, no apparent distress HEENT: PERRL/EOMI Respiratory: lungs clear, normal breath sounds, no respiratory distress, no accessory muscle use Cardiovascular: regular rate, rhythm Gastrointestinal: soft; No distended, No guarding, No rebound, No tenderness Extremities: normal range of motion, normal inspection, no pedal edema, normal capillary refill Neurologic/Psychiatric: alert, normal mood/affect, oriented x 3 Skin: normal color, warm/dry Progress/Results/Core Measures Results/Orders Lab Results Laboratory Tests Test 08/31/22 06:04 08/31/22 06:40 Range/Units Urine Color YELLOW Urine Clarity CLEAR Urine pH 6.0 5-9 Urine Specific [place] 1.010 L 1.016-1.022 Urine Protein NEGATIVE NEGATIVE Urine Glucose (UA) NEGATIVE NEGATIVE Urine Ketones NEGATIVE NEGATIVE Urine Nitrite NEGATIVE NEGATIVE Urine Bilirubin NEGATIVE NEGATIVE Urine Urobilinogen 0.2 < = 1.0 MG/DL Urine Leukocyte Esterase NEGATIVE NEGATIVE Urine RBC (Auto) NEGATIVE NEGATIVE Urine RBC NONE /HPF Urine WBC NONE /HPF Urine Squamous Epithelial Cells RARE /HPF Urine Crystals NONE /LPF Urine Bacteria NEGATIVE /HPF Urine Casts NONE /LPF Urine Mucus NEGATIVE /LPF Urine Culture Indicated NO White Blood Count 6.7 4.3-11.0 10^3/uL Red Blood Count 4.54 3.80-5.11 10^6/uL Hemoglobin 14.6 11.5-16.0 g/dL Hematocrit 42 35-52 % Mean Corpuscular Volume 93 80-99 fL Mean Corpuscular Hemoglobin 32 25-34 pg Mean Corpuscular Hemoglobin Concent 34 32-36 g/dL Red Cell Distribution Width 12.5 10.0-14.5 % Platelet Count 136 130-400 10^3/uL Mean Platelet Volume 10.9 9.0-12.2 fL Immature Granulocyte % (Auto) 0 % Neutrophils (%) (Auto) 48 42-75 % Lymphocytes (%) (Auto) 41 12-44 % Monocytes (%) (Auto) 7 0-12 % Eosinophils (%) (Auto) 3 0-10 % Basophils (%) (Auto) 1 0-10 % Neutrophils # (Auto) 3.2 1.8-7.8 10^3/uL Lymphocytes # (Auto) 2.7 1.0-4.0 10^3/uL Monocytes # (Auto) 0.5 0.0-1.0 10^3/uL Eosinophils # (Auto) 0.2 0.0-0.3 10^3/uL Basophils # (Auto) 0.1 0.0-0.1 10^3/uL Immature Granulocyte # (Auto) 0.0 0.0-0.1 10^3/uL Percent Immature Platelet Fraction 8.0 H 0.0-7.6 % Sodium Level 139 135-145 MMOL/L Potassium Level 3.8 3.6-5.0 MMOL/L Chloride Level 111 H 98-107 MMOL/L Carbon Dioxide Level 19 L 21-32 MMOL/L Anion Gap 9 5-14 MMOL/L Blood Urea Nitrogen 10 7-18 MG/DL Creatinine 0.63 0.60-1.30 MG/DL Estimat Glomerular Filtration Rate 109 BUN/Creatinine Ratio 16 Glucose Level 101 70-105 MG/DL Calcium Level 9.4 8.5-10.1 MG/DL Corrected Calcium 9.6 8.5-10.1 MG/DL Total Bilirubin 0.3 0.1-1.0 MG/DL Aspartate Amino Transf (AST/SGOT) 42 H 5-34 U/L Alanine Aminotransferase (ALT/SGPT) 78 H 0-55 U/L Alkaline Phosphatase 120 40-136 U/L Total Protein 6.6 6.4-8.2 GM/DL Albumin 3.8 3.2-4.5 GM/DL Lipase 18 8-78 U/L Smear Scan YES My Orders Orders - CHARLES HOLMAN MD Ed Iv/Invasive Line Start (08/31/22 06:26) Cbc With Automated Diff (08/31/22 06:26) Comprehensive Metabolic Panel (08/31/22 06:26) Lipase (08/31/22 06:26) Ua Culture If Indicated (08/31/22 06:26) Ns Iv 1000 Ml (Sodium Chloride 0.9%) (08/31/22 06:30) Ketorolac Injection (Toradol Injection) (08/31/22 06:30) Abdomen/Kub 1view (08/31/22 07:11) Medications Given in ED Current Medications Medications Dose Ordered Sig/Dunia Route Start Time Stop Time Status Last Admin Dose Admin Ketorolac Tromethamine 15 mg ONCE ONCE IVP 08/31/22 06:30 08/31/22 06:31 DC 08/31/22 06:57 15 MG Vital Signs/I&O 08/31/22 05:55 Temp 36.5 Pulse 88 Resp 16 B/P (MAP) 138/103 (115) Pulse Ox 98 O2 Delivery Room Air Blood Pressure Mean: 115 Progress Progress Note #1: Time: 08:13 Progress Note Patient re-evaluated at this time - feeling a little better. Communicated results. Progress Note #2: Time: 08:40 Progress Note Patient seen and examined by me. Evaluation today includes physical exam, CBC, comprehensive metabolic panel, urinalysis and KUB. Pertinent physical exam findings well-developed well-nourished 47-year-old female in no acute distress. Heart is regular, lungs are clear, abdominal exam minimal tenderness to the left upper quadrant/left flank. No involuntary guarding or rebound tenderness is noted. No overlying skin changes or rashes. Differential diagnosis based on history and physical, renal colic/kidney stone, pyelonephritis, constipation, partial small bowel obstruction. Labs independently reviewed and interpreted by me as well as the KUB. CBC is completely normal. Comprehensive metabolic panel is notable for only a minimal increase in AST of 42 ALT of 78. Minimally depressed CO2 at 19. Urinalysis is unremarkable for infection, no blood. KUB shows extensive stool in both the ascending and descending colon. Patient is treated with Toradol, Zofran and a liter of normal saline. She is reassessed after medications and feels better. Recommended conservative management to the patient, magnesium citrate or MiraLA X. Advised her to increase her water intake. She has no fever or concerns for acute infection. Low clinical suspicion for renal colic/stone. No evidence of infection at all in her urine ruling out pyelonephritis. She does not have any evidence on KUB for bowel obstruction. Patient is comfortable with the plan of care. All questions are sought and answered. Patient is improved at discharge. Diagnostic Imaging Diagonstic Imaging: Xray Comments [facility], [place] NAME: ARNOL CROW [facility] REC#: [id number] PT STATUS: REG ER : 1975 PHYSICIAN: CHARLES HOLMAN MD ADMIT DATE: 08/31/22/ER Draft Date of Exam:08/31/22 ABDOMEN/KUB 1VIEW CLINICAL INDICATION: Patient with left upper abdominal pain x4-5 days. EXAM: X-ray of the abdomen with multiple supine and upright views. COMPARISON: None. FINDINGS: There is a nonobstructed bowel gas pattern. There is no evidence of abdominal free air. There is a moderate amount of stool involving the right and left sides of the colon. There are no focal calcifications overlying the expected regions/ pathways of both kidneys, ureters, and bladder regions. The visualized bones and extra abdominal soft tissues are unremarkable. IMPRESSION: There is no radiographic evidence for acute abdominal/ pelvic process or urinary tract stones. There is a moderate amount of stool involving the right and left sides of the colon. Dictated on workstation # [id number] Dict: 08/31/22 0749 Trans: 08/31/22 0755 [facility] [id number] Interpreted by: AG LOJA MD Electronically signed by: Departure Impression Primary Impression: Abdominal pain Qualified Codes: R10.9 - Unspecified abdominal pain Disposition: 01 HOME, SELF-CARE Condition: Improved Departure-Patient Inst. Decision time for Depature: 08:15 Referrals: [facility]/ (PCP) Primary Care Physician OLIVIA JOYCE (Family) Primary Care Physician Patient Instructions: Constipation, Adult (DC) Add. Discharge Instructions: Increase your intake of water daily to help keep stools soft. You can try some over the counter Miralax or Mag Citrate to help clean out your colon. If you develop worsening abdominal pain, with fever, vomiting or any other emergent, concerning symptoms - please return to the Emergency Department for re-evaluation. Please call today for a follow up visit at the Clinic next week. Copy Copies To 1: DUSTY BOSWELL KATHRYN M MD Aug 31, 2022 06:21
[2022-08-31] MEDS ORDERED: NS IV 1000 ML 1,000 ML IV SCH (06:30)
[2022-08-31] MEDS ORDERED: KETOROLAC 15 MG/ML VIAL IVP ONE (06:30)
[2022-08-31 06:49] LABS: BILIRUBIN,URINE NEGATIVE (NEGATIVE); CLARITY,URINE CLEAR; COLOR,URINE YELLOW; GLUCOSE, URINE (UA) NEGATIVE (NEGATIVE); KETONES,URINE NEGATIVE (NEGATIVE); LEUKOCYTE ESTERASE ,URINE NEGATIVE (NEGATIVE); NITRITE,URINE NEGATIVE (NEGATIVE); PROTEIN,URINE NEGATIVE (NEGATIVE)
[2022-08-31 06:51] LABS: BASOPHILS # (AUTO) 0.1 10^3/uL (0.0-0.1); BASOPHILS % (AUTO) 1 % (0-10); EOSINOPHILS # (AUTO) 0.2 10^3/uL (0.0-0.3); EOSINOPHILS % (AUTO) 3 % (0-10); HEMATOCRIT 42 % (35-52); HEMOGLOBIN 14.6 g/dL (11.5-16.0); LYMPHOCYTES # (AUTO) 2.7 10^3/uL (1.0-4.0); LYMPHOCYTES % (AUTO) 41 % (12-44); MEAN CORPUSCULAR HEMOGLOBIN 32 pg (25-34); MEAN CORPUSCULAR HGB CONC 34 g/dL (32-36); MEAN CORPUSCULAR VOLUME 93 fL (80-99); MEAN PLATELET VOLUME 10.9 fL (9.0-12.2); MONOCYTES # (AUTO) 0.5 10^3/uL (0.0-1.0); MONOCYTES % (AUTO) 7 % (0-12); NEUTROPHILS # (AUTO) 3.2 10^3/uL (1.8-7.8); NEUTROPHILS % (AUTO) 48 % (42-75); PLATELET COUNT 136 10^3/uL (130-400); WHITE BLOOD COUNT 6.7 10^3/uL (4.3-11.0)
[2022-08-31 06:56] LABS: ALBUMIN 3.8 GM/DL (3.2-4.5); POTASSIUM 3.8 MMOL/L (3.6-5.0)
[2022-08-31 06:57] LABS: CALCIUM 9.4 MG/DL (8.5-10.1)
[2022-08-31 06:57] LABS: BACTERIA,URINE NEGATIVE /HPF; SQUAMOUS EPITHELIAL CELL,UR RARE /HPF
[2022-08-31 06:59] LABS: TOTAL PROTEIN 6.6 GM/DL (6.4-8.2)
[2022-08-31 07:02] LABS: CREATININE SERUM 0.63 MG/DL (0.60-1.30)
[2022-08-31 07:04] LABS: SMEAR SCAN COMMENT YES
[2022-08-31 07:19] LABS: BILIRUBIN,TOTAL 0.3 MG/DL (0.1-1.0)
--- NOTE | 2022-08-31 07:56 | Diagnostic Imaging Report ---
CLINICAL INDICATION: Patient with left upper abdominal pain x4-5 days. EXAM: X-ray of the abdomen with multiple supine and upright views. COMPARISON: None. FINDINGS: There is a nonobstructed bowel gas pattern. There is no evidence of abdominal free air. There is a moderate amount of stool involving the right and left sides of the colon. There are no focal calcifications overlying the expected regions/ pathways of both kidneys, ureters, and bladder regions. The visualized bones and extra abdominal soft tissues are unremarkable. IMPRESSION: There is no radiographic evidence for acute abdominal/ pelvic process or urinary tract stones. There is a moderate amount of stool involving the right and left sides of the colon. Dictated by: Dictated on workstation # [id number]
[2022-08-31 08:39] VITALS: BP 155/100
== END 2022-08-31 08:40 | disposition home or self-care (01) ==
LOC: EDUNIT# 05:45 → ER 05:50
DX: R10.12 Left upper quadrant pain (principal); R11.0 Nausea; F17.200 Nicotine dependence, unspecified, uncomplicated
CPT/HCPCS: 36415; 74018; 80053; 81000; 83690; 85025

== ENCOUNTER → 2022-10-29 | Outpatient (CLI) | payer MEDICAID ==
[~2022-10-29] MED LIST changes: +DESV50TA18; +FERR324T; +HYDR-3817; +OXYB10TA29; +PREG150C46
== END ==
LOC: RAD 13:44
DX: C53.1 Malignant neoplasm of exocervix (principal)